=== PATIENT | female | born 1985 | race Caucasian/White ===

== ENCOUNTER → 2017-10-30 12:18 | Outpatient (CLI) | payer OTHER, SELFPAY ==
[2017-10-30 13:21] LABS: Progesterone Level 0.35 ng/mL (See Comment)
[2017-11-04 09:37] LABS: Pregnancy, Serum, hCG Quali. NEGATIVE Negative (0-9 Nonpreg)
== END ==
PROVIDERS: Visit Provider Obstetrics & Gynecology
DX: Z30.430 Encounter for insertion of intrauterine contraceptive device (principal)
CPT/HCPCS: 36415; 84144; 84703

== ENCOUNTER → 2017-11-04 16:29 | Outpatient (CLI) | payer OTHER, SELFPAY ==
[2017-11-04 19:51] LABS: Chlamydia Trachomatis by PCR Negative (Negative); Neisserai gonorrhoeae by PCR Negative (Negative); Probe Check PASS; Sample Adequacy Control PASS; Specimen Processing Control PASS
== END ==
PROVIDERS: Visit Provider Obstetrics & Gynecology
DX: Z11.3 Encounter for screening for infections with a predominantly sexual mode of transmission (principal)
CPT/HCPCS: 87491; 87591

== ENCOUNTER → 2019-04-20 14:38 | Outpatient (CLI) | payer OTHER, SELFPAY ==
[2019-04-20 11:17] VITALS: BMI 19.1
[2019-04-20 14:51] LABS: Color, Urine Yellow (Yellow); Glucose, Dipstick Normal (Normal); Ketone-Dipstick Negative (Negative); Leukocyte Esterase-Dipstick 25 /ul (Negative); Nitrite-Dipstick Negative (Negative); Occult Blood-Urine 10 /ul (Negative); Protein-Dipstick 30 mg/dl (Negative); Specific Gravity, Urine 1.015 (1.002-1.030); Urine Bilirubin Dipstick Negative (Negative); Urine Clarity Sl. Cloudy (Clear); Urine Urobilinogen Normal (Normal)
[2019-04-20 14:57] LABS: Bacteria 1+ /hpf (None Seen); Mucous, Urine 1+ /hpf (<or=2+); Red Blood Cells-Urine 0-5 SEEN /hpf (0-5); Squamous Epithelial Cells - UA 0-5 SEEN /hpf (5-10); White Blood Cells 0-5 SEEN /hpf (0-5)
== END ==
PROVIDERS: Family Provider Family Medicine; PCP Family Medicine; Referring Provider Physician Assistant Surgical; Visit Provider Physician Assistant Surgical
DX: R30.0 Dysuria (principal)
CPT/HCPCS: 81001; 87086; 87088

== ENCOUNTER → 2022-12-26 | Outpatient (CLI) | payer OTHER, SELFPAY ==
[2023-01-03 10:08] LABS: HPV APTIMA, High Risk Negative (Negative)
== END | disposition home or self-care (01) ==
PROVIDERS: PCP Family Medicine; Visit Provider Nurse Practitioner Women's Health
DX: Z12.4 Encounter for screening for malignant neoplasm of cervix (principal)
CPT/HCPCS: 87624; 88175; G0145

== ENCOUNTER 2025-02-13 09:48 | Emergency (ER) | payer OTHER, SELFPAY ==
[2025-02-13 09:48] VITALS: BP 106/62; PULSE 59; RESP 14; TEMP 36.9; O2SAT 100; BMI 19.7
[2025-02-13] MEDS: Ketorolac 30 MG/ML Syringe IM (10:24)
--- NOTE | 2025-02-13 10:30 | RAD_ITS ---
PROCEDURE: ELBOW MIN 3 VIEWS 02/13/2025 REASON FOR EXAM: ELBOW PAIN TECHNIQUE: 3 views of the right COMPARISON: None FINDINGS: Small osseous fragments lateral to the lateral condyle. No acute fracture or dislocation. No joint effusion. No significant soft tissue swelling. RAD/Elbow min 3 Views IMPRESSION: No acute fracture or dislocation. 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 Reading Location: [facility]
--- OUTSIDE RECORDS SUMMARY | 2025-02-13 10:41 | XMS RPT_ITS | CCD ---
Author Organization [facility] Care Team Providers Care Reactor Operator Name Role Phone Azam Cordova MD Primary Care Provider CIARAN DAVIS Attending Unavailable AZAM CORDOVA Primary Care Unavailable CIARAN DAVIS Admitting Unavailable CIARAN DAVIS Attending Unavailable AZAM CORDOVA Primary Care Unavailable CIARAN DAVIS Admitting Unavailable AZAM CORDOVA Primary Care Unavailable SINDHU GAGE Attending Unavailable CIARAN DAVIS Referring Unavailable CIARAN DAVIS Attending Unavailable AZAM CORDOVA Primary Care Unavailable AZAM CORDOVA Referring Unavailable AZAM CORDOVA Referring Unavailable AZAM CORDOVA Primary Care Unavailable CIARAN DAVIS Referring Unavailable AZAM CORDOVA Primary Care Unavailable AZAM CORDOVA Primary Care Unavailable AZAM CORDOVA Attending Unavailable AZAM CORDOVA Primary Care Unavailable CIARAN DAVIS Attending Unavailable Azam Cordova MD Primary Care Provider [phone] Azam Cordova Primary Care Unavailable Isabelle Bazzi Attending Unavailable Azam Cordova Primary Care Unavailable Isabelle Bazzi Referring Unavailable Isabelle Bazzi Attending Unavailable Azam Cordova MD Primary Care Provider Allergies Allergy Classification Reported Allergen(s) Allergy Type Date of Onset Reaction(s) Facility Bacitracin (2 sources) Bacitracin Drug Allergy 07-09-2015 [facility] Bacitracin / Neomycin / Polymyxin B (2 sources) Bacitracin / Neomycin / Polymyxin B Drug Allergy 07-09-2015 [facility] (12 sources) Bacitracin; Translations: [BACITRACIN] Drug Allergy 07-09-2015 [facility] (11 sources) Bacitracin / Neomycin / Polymyxin B; Translations: [NEOSPORIN (NEOMYCIN-POLYMY X)] Drug Allergy 07-09-2015 [facility] (2 sources) Bacitracin; Translations: [bacitracin zinc] Drug Allergy 04-20-2019 Other [facility] (2 sources) Neomycin; Translations: [neomycin sulfate] Drug Allergy 04-20-2019 Other [facility] (1 source) Penicillins Allergy to substance 04-20-2019 [facility] (1 source) Polymyxin B Drug Allergy 04-20-2019 Other [facility] (1 source) Bacitracin Drug Allergy 04-20-2019 [facility] (1 source) Penicillins Drug allergy (disorder) 04-20-2019 [facility] (1 source) polymyxin B Drug allergy (disorder) 04-20-2019 [facility] Medications Current Medications Medication Drug Class(es) Dates Sig (Normalized) Sig (Original) busPIRone hydrochloride 10 mg oral tablet (2 sources) Start: 02-17-2024 End: 08-15-2024 take 1 tablet by mouth three times daily busPIRone (BUSPAR) 10 mg tablet Indications: Anxiety with depression Take 1 tablet by mouth three times a day. 270 tablet 1 02/17/2024 08/15/2024 Active Start: 11-01-2023 End: 01-30-2024 take 1 tablet by mouth three times daily busPIRone (BUSPAR) 5 mg tablet Indications: Anxiety with depression Take 1 tablet by mouth three times a day. 90 tablet 2 11/01/2023 01/30/2024 Active Comment on above: Take 1 tablet by theo three times a day. [place] (Nk) (1 source) Start: [place] (Nk) Active April 20, 2019 12:00am PARoxetine hydrochloride 20 mg oral tablet (5 sources) Serotonin Reuptake Inhibitor Start: End: take 1 tablet by mouth once daily PARoxetine (PAXIL) 20 mg tablet Indications: Anxiety with depression Take 1 tablet by mouth once daily. 90 tablet 1 02/17/2024 08/15/2024 Active Start: 02-17-2024 End: 02-17-2024 take 1 tablet by mouth once daily PARoxetine (PAXIL) 10 mg tablet Indications: Anxiety with depression Take 1 tablet by mouth once daily. 30 tablet 2 02/17/2024 02/17/2024 Discontinued Start: 11-01-2023 End: 01-30-2024 take 1 tablet by mouth once daily PARoxetine (PAXIL) 10 mg tablet Indications: Anxiety with depression Take 1 tablet by mouth once daily. 30 tablet 2 11/01/2023 Active Comment on above: Take 1 tablet by theo th once daily. Completed/Discontinued Medications Medication Drug Class(es) Dates Sig (Normalized) Sig (Original) ciprofloxacin 3 mg/ml / dexamethasone 1 mg/ml otic suspension (1 source) Corticosteroid, Quinolone Antimicrobial Start: 03-17-2018 End: 03-24-2018 Ciprofloxacin-Dexa methasone (Ciprodex) 0.3-0.1 % drops,suspension Discontinued 4 DRP OTIC Q12H 7.5 7 March 17, 2018 12:00am March 24, 2018 12:06am docusate sodium 100 mg oral capsule (1 source) Start: 09-18-2017 End: 03-17-2018 take 100 mg by mouth twice daily as needed Docusate Sodium Discontinued 100 MG PO TWICE DAILY NEEDED September 18, 2017 1:00am March 17, 2018 8:04am ondansetron 4 mg oral tablet (1 source) Serotonin-3 Receptor Antagonist Start: 08-13-2017 End: 03-17-2018 take 4 mg by mouth every six hours as needed Ondansetron Hcl Discontinued 4 MG PO EVERY 6 HOURS NEEDED August 13, 2017 1:31pm March 17, 2018 8:04am oxyCODONE hydrochloride 5 mg oral tablet (1 source) Opioid Agonist Start: 09-18-2017 End: 03-17-2018 take 5-10 mg by mouth every six hours as needed for pain Oxycodone Discontinued 5 - 10 MG PO EVERY 6 HOURS NEEDED September 18, 2017 1:00am March 17, 2018 8:04am 5-10 mg q 6 hours prn severe pain Vit,[id number]-Bsh ic (1 source) Start: 03-07-2017 End: 03-17-2018 take 1 tablet by mouth once daily Vit,[id number]-Pn lic Discontinued 1 TABLET PO DAILY March 07, 2017 12:00am March 17, 2018 8:04am Problems Active Problems Problem Classification Problem Date Documented Date Episodic/Chronic Abdominal pain (1 source) Abdominal pain; Translations: [Unspecified abdominal pain] 09-18-2017 Episodic Adjustment disorders (11 sources) Adjustment disorder; Translations: [Adjustment disorder, unspecified] Onset: 04-07-2014 04-07-2014 Chronic Anxiety disorders (15 sources) Panic; Translations: [Panic disorder [episodic paroxysmal anxiety]] Onset: 04-07-2014 04-07-2014 Chronic Conduction disorders (11 sources) Bundle branch block; Translations: [Nonspecific intraventricular block] Onset: 03-20-2021 03-20-2021 Chronic Nonmalignant breast conditions (1 source) Unspecified lump in the right breast, unspecified quadrant; Translations: [Unspecified lump in the right breast, unspecified quadrant] Onset: 12-31-2022 Episodic Other ear and sense organ disorders (11 sources) Chronic infective otitis externa; Translations: [Other infective otitis externa, unspecified ear] Onset: 06-28-2022 06-28-2022 Chronic Other nervous system disorders (11 sources) Carpal tunnel syndrome of left wrist; Translations: [Carpal tunnel syndrome, left upper limb] Onset: 08-08-2022 Chronic Other nervous system disorders (1 source) Carpal tunnel syndrome of right wrist; Translations: [Carpal tunnel syndrome, right upper limb] Chronic Other nervous system disorders (1 source) Carpal tunnel syndrome, right upper limb; Translations: [Carpal tunnel syndrome of right wrist] Onset: 08-31-2022 Chronic Other nervous system disorders (2 sources) Carpal tunnel syndrome, left upper limb; Translations: [Carpal tunnel syndrome of left wrist] Onset: 08-08-2022 Chronic Other nervous system disorders (1 source) Bilateral carpal tunnel syndrome; Translations: [Carpal tunnel syndrome, bilateral upper limbs] Chronic Other nervous system disorders (1 source) Paresthesia; Translations: [Paresthesia of skin] Episodic Other nervous system disorders (1 source) Paresthesia of skin; Translations: [Paresthesia] Onset: 07-16-2022 Episodic Other screening for suspected conditions (not mental disorders or infectious disease) (1 source) Encounter for screening for malignant neoplasm of cervix; Translations: [Encounter for screening for malignant neoplasm of cervix] Onset: 01-01-2023 Episodic Residual codes; unclassified (1 source) Difficulty sleeping ; Translations: [Sleep disorder, unspecified] 11-01-2023 Episodic Substance-related disorders (8 sources) Smokes tobacco daily; Translations: [Nicotine dependence, unspecified, uncomplicated] Onset: 08-08-2022 Chronic Past or Other Problems Problem Classification Problem Date Documented Da te Episodic/Chronic Cardiac dysrhythmias (12 sources) Palpitations; Translations: [Palpitations] Onset: 03-20-2021 03-20-2021 Episodic Hemorrhoids (11 sources) Hemorrhoids; Translations: [Unspecified hemorrhoids] Onset: 10-29-2012 10-29-2012 Episodic Results Test Name Value Interpretation Reference Range Facil ity PAP IG HPV APTIMA 16/18,45on 01-03-2023 ADEQ Comment Normal . [facility] Comment on above: Order Comment: Speci men Comment: [id number] Specimen Comment: Source.............Cervix;Endocervix Specimen Comment: Dates / Results....NO LMP Specimen Comment: No. of containers..01 ThinPrep Vial Result Comment: Sati sfactory for evaluation. Endocervical and/or squamous metaplastic cells (endocervical component) are present. Performed By: #### L 7400.0280 #### [facility] [address] [place], [address] COMM . Normal . [facility] Comment on above: Order Comment: Speci men Comment: [id number] Specimen Comment: Source.............Cervix;Endocervix Specimen Comment: Dates / Results....NO LMP Specimen Comment: No. of containers..01 ThinPrep Vial Performed By: #### L 7400.0280 #### [facility] [address] [place], [place], [id number] COMMENT Comment Normal . [facility] Comment on above: Order Comment: Speci men Comment: [id number] Specimen Comment: Source.............Cervix;Endocervix Specimen Comment: Dates / Results....NO LMP Specimen Comment: No. of containers..01 ThinPrep Vial Result Comment: This liquid based ThinPrep(R) pap test was screened with the use of an image guided system. Performed By: #### L 7400.0280 #### [facility] [address] [place], [place], [id number] DIAG Comment Normal . [facility] Comment on above: Order Comment: Speci men Comment: [id number] Specimen Comment: Source.............Cervix;Endocervix Specimen Comment: Dates / Results....NO LMP Specimen Comment: No. of containers..01 ThinPrep Vial Result Comment: NEGA TIVE FOR INTRAEPITHELIAL LESION OR MALIGNANCY. Performed By: #### L 7400.0280 #### [facility] [address] [place], [place], [address] HPV APTIMA, HR Negative Normal Negative [facility] Comment on above: Order Comment: Speci men Comment: [id number] Specimen Comment: Source.............Cervix;Endocervix Specimen Comment: Dates / Results....NO LMP Specimen Comment: No. of containers..01 ThinPrep Vial Result Comment: This nucleic acid amplification test detects fourteen high- risk HPV types (16,18,31,33,35,39,45,51,52,56,58,59,66,68) without differentiation. Performed By: #### L 7400.0280 #### [facility] [address] [place], [place], [address] HPV Mandy Rfx Comment Normal . [facility] Comment on above: Order Comment: Speci men Comment: [id number] Specimen Comment: Source.............Cervix;Endocervix Specimen Comment: Dates / Results....NO LMP Specimen Comment: No. of containers..01 ThinPrep Vial Result Comment: Crit eria not met, HPV Genotype not performed. Performed at: [address] [place] [id number] Bone Glue Maker: Nasrin Claudio MD, Phone: [phone] Performed at: =G - [facility] [id number] Bone Glue Maker: Nasrin Claudio MD, Phone: [phone] Performed By: #### L [id number] #### [facility] [address] [place], [place], [address] PAPSMR Comment Normal . [facility] Comment on above: Order Comment: Speci men Comment: [id number] Specimen Comment: Source.............Cervix;Endocervix Specimen Comment: Dates / Results....NO LMP Specimen Comment: No. of containers..01 ThinPrep Vial Result Comment: The Pap smear is a screening test designed to aid in the detection of premalignant and malignant conditions of the uterine cervix. It is not a diagnostic procedure and should not be used as the sole means of detecting cervical cancer. Both false-positive and false-negative reports do occur. Performed By: #### L 7400.0280 #### [facility] [address] [place], [place], [address] PERFORM Comment Normal . [facility] Comment on above: Order Comment: Speci men Comment: [id number] Specimen Comment: Source.............Cervix;Endocervix Specimen Comment: Dates / Results....NO LMP Specimen Comment: No. of containers..01 ThinPrep Vial Result Comment: Juani Reyes, Truck Safety Inspector (ASCP) Performed By: #### L [id number] #### [facility] [address] [place], [place], [address] ANES POSTPROC EVALon 022 ANES POSTPROC EVAL HNO ID: [id number] Author: Tiburcio Perez MD Service: Anesthesiology Author Type: Anesthesiologist Type: Anesthesia Postprocedure Evaluation Filed: 08/31/2022 10:54 AM Note Text: POST ANESTHESIA EVALUATION NOTE : 1985 Procedure Summary Date: 08/31/22 Room / Location: ME OR01 / ME OR Anesthesia Start: 1012 Anesthesia Stop: 1037 Procedure: DECOMPRESSION NERVE MEDIAN CARPAL TUNNEL (Right: Hand) Diagnosis: Right carpal tunnel syndrome (Right carpal tunnel syndrome [G56.01]) Surgeons: Ciaran Davis MD Responsible Provider: Tiburcio Perez MD Anesthesia Type: MAC ASA Status: 2 Anesthesia Type: MAC Last Vitals Vitals Value Taken Time BP 89/53 08/31/22 1046 Temp 354 08/31/22 1053 Pulse 57 08/31/22 1052 Resp 16 08/31/22 1052 SpO2 98 % 08/31/22 1052 Vitals shown include unvalidated device data. Post Anesthesia Patient Status Patient Evaluation: PACU. PACU/ICU Patient Condition: stable. Anticipated Disposition: phase 2 then home. Neurological Status: aware and responsive. Pulmonary Status: breathing comfortably on room air Airway Control: returned to baseline unsupported. Cardiovascular Status: stable. Pain Management: clinically adequate - multimodal analgesia pain management approach Postoperative Hydration: acceptable. Intraoperative Events: no significant anesthesia events Recommendation: continue current plan of care. Anesthesia Observations No Documentation SIGNATURE: Tiburcio Perez MD PATIENT NAME: Leila Marin DATE: August 31, 2022 TIME: 10:53 AM CSN: [id number] [facility] ANES PRE-OPon 08-31-2022 ANES PRE-OP HNO ID: [id number] Author: Tiburcio Perez MD Service: Anesthesiology Author Type: Anesthesiologist Type: Anesthesia Preprocedure Evaluation Filed: 08/31/2022 8:38 AM Note Text: ANESTHESIOLOGY DAY OF SURGERY NOTE : 1985 Procedure Information Date/Time: 08/31/22 1005 Procedure: DECOMPRESSION NERVE MEDIAN CARPAL TUNNEL (Right: Wrist) Location: NM OR01 / NM OR Surgeons: Ciaran Davis MD Estimated body mass index is 19.53 kg/m? as calculated from the following: Height as of 08/10/22: 180.3 cm (5' 11). Weight as of 08/10/22: 63.5 kg (140 lb). Most recent hematocrit and potassium results: Hematocrit 39.2 10/05/2020 Potassium 4.1 10/05/2020 Relevant Problems CARDIO (+) Bundle branch block (+) Hemorrhoids I - PHYSICAL EVALUATION AIRWAY Patient intubated: No. Tracheostomy tube not present Mallampati: II. TM distance: >3 FB. Neck ROM: full ROM without neurological symptoms. Mouth opening: adequate. Collins present: no DENTAL Dental findings: poor dentition. Additional exam findings: yes. CARDIOVASCULAR Rhythm: regular PULMONARY Breath sounds clear to auscultation. II - ANESTHESIA PLAN ASA Score: 2 Anesthetic Plan: MAC NPO Status: adequate Beta Octavia Monitoring Plan Monitoring plan: standard ASA. Post Procedure Analgesic Plan Postoperative analgesic plan: parenteral or oral opioids and multimodal analgesia. Patient / Surrogate agrees to blood products: blood products not planned Significant changes in the patient condition since the History and Physical, not otherwise documented in primary service progress note: no. Vitals Value Taken Time BP 114/67 08/31/2237 Pulse 77 08/31/22836 Resp 18 08/31/22836 Temp 36.4 ?C (97.5 ?F) 08/31/22836 SpO2 100 % 08/31/22836 No current facility-administered medications on file as of 08/31/2022. No current outpatient medications on file as of 08/31/2022. I have interviewed and examined the patient. I have reviewed the medical record and/or the pre-anesthesia evaluation, pertinent labs, and test results. This contains updated information obtained within 48 hours of Surgery/Procedure. SIGNATURE: Tiburcio Perez MD PATIENT NAME: Leila Marin DATE: August 31, 2022 TIME: 8:38 AM CSN: [id number] [facility] OPERATIVE NOon 08-31-2022 OPERATIVE NO HNO ID: [id number] Author: Ciaran Davis MD Service: Orthopaedic Surgery Author Type: Physician Type: Operative Report Filed: 08/31/2022 10:44 AM Note Text: OPERATIVE/PROCEDURE REPORT LOG ID: [id number] SURGERY/PROCEDURE DATE: 08/31/2022 INCISION/PROCEDURE START TIME: 10:23 AM INCISION CLOSE/PROCEDURE END TIME: 10:33 AM SURGEON(S)/PROCEDURALIS T(S) AND DRAW FRAME TENDER(S): Surgeon(s) and Role: * Ciaran Davis MD - Primary Physician Tower Technician: Sindhu Gage PA-C OPERATION: Right carpal tunnel release, open. Modifier 79 ANESTHESIA: MAC with local. PREOPERATIVE DIAGNOSIS: Right carpal tunnel syndrome. POSTOPERATIVE DIAGNOSIS: Right carpal tunnel syndrome. OPERATIVE INDICATIONS: This is a pleasant 37 year old female who had worsening, numbness, and tingling. Her electrodiagnostic showed normal findings on the right, however she had positive findings on the left, successful improvement after surgery on the left, and similar symptoms on the right. She exhausted conservative management and in the office, we discussed the risks, benefits, alternatives, and potential complications involving carpal tunnel release and she wished to pursue surgical intervention. OPERATIVE FINDINGS: Consistent with postoperative diagnosis. OPERATIVE PROCEDURE: On August 31, 2022, the patient was clearly identified in the preoperative area and marked accordingly on the Right palm by myself. She was taken to the operative suite and placed in the supine position with an armboard on the Right. She received 2 g of Ancef in the IV within 1 hour of incision or tourniquet. Anesthesia assumed care of the head and neck for the remainder of the case and began a MAC anesthetic. All other bony landmarks were appropriately padded in standard fashion. The upper extremity had a well-padded upper brachium tourniquet applied with Webril padding and set at 250 mmHg, but not yet inflated. The arm was then sterilely prepped and draped in standard fashion. An appropriate time-out was conducted and all in the room were in agreement, signed consent form was on the chart. The upper extremity was exsanguinated with an Esmarch bandage and the tourniquet was applied at 250 mmHg. Local anesthetic was provided at the palm and wrist with 1% lidocaine plain and 0.25% Marcaine plain in a 1:1 ratio for total of 4 mL. A longitudinal incision was made with in line with the third web space from 1 cm distal of the wrist crease to Velasquez's cardinal line. I used Delmy Rakes to retract the soft tissues. Bipolar electrocautery was used for hemostasis. I bluntly dissected down with Littler scissors to distal edge of the transverse carpal ligament until a flash of fat was noted. I directly divided distal edge of the transverse carpal ligament with a #15 blade. Attention was then focused on the proximal portion and I used Littler scissors to bluntly dissect off the volar surface of the transverse carpal ligament. A carpal tunnel and median nerve protection guide was slid directly under the ligament for dilation and a second time for appropriate positioning, this was passed freely without any resistance. Subsequently, I selected a mini meniscotome Champl[place] blade and slid this in the protective guide, completely dividing the transverse carpal ligament. Delmy rakes were used to view up the wound to visualize for complete release and a Loami elevator was used to palpate for complete release. At this point, the tourniquet was taken down and hemostasis was observed. The wound was copiously irrigated with normal saline and I closed with 3-0 nylons in horizontal mattress fashion for a total of 3. Xeroform gauze, sterile 4 x 4 gauze, Webril padding, and a Bias roll was used for final bandage. There were no complications during the procedure. The patient was safely awoken and transferred to the Postanesthetic Care Unit in stable condition. I performed the surgery myself SIGNATURE: Ciaran Davis MD PATIENT NAME: Leila Ricci Eusebio DATE: August 31, 2022 TIME: 10:41 AM [facility] 08-20-2022 [facility] Office Visit (ORTHWS ) EUSEBIOLEILA L ([id number]) 1985 F Date Time Provider Department 08/20/22 7:30 AM SINDHU GAGE During your visit today, we recorded the following information about you: Minnie Tk Wetzel 08/20/2022 8:02 AM Signed Patient presents with: Left Hand - Post Op 1 week 3 days post op Left CTR AMB ROOMING INTAKE FLOWSHEET DATA Risk Screening Do you have concerns about personal safety or safety in the home?: No Patient denies any pain. States she does have some tightness from the sutures pulling. Sutures intact. No redness or drainage. Sindhu Gage PA-C 08/20/2022 8:02 AM Signed Sindhu Gage PA-C Department [facility]edics [facility] [address] [facility] [address] Dept: [phone] Dept August 20, 2022 CHIEF COMPLAINT: Post Op of the Left Hand and 1 week 3 days post op Left CTR. ASSESSMENT: G56.02 Carpal tunnel syndrome, left (primary encounter diagnosis) SUMMARY/PLAN: Patient presents 1 week and 3 days status post left carpal tunnel release. She is doing very well denies any pain. Is already been doing quite a bit of baking, reports some tightness at the surgical site. Is already wanting to schedule her right carpal tunnel release. We discussed proper hand washing, no soaking of the operative hand. No heavy lifting, pushing or pulling with the operative hand, encourage gentle motion. We discussed scar massage. Follow up as planned. Exam: Incision site is well approximated without erythema or drainage. There is mild but appropriate edema and some resolving ecchymosis along the palm and the volar aspect of the wrist. Patient has full and active range of motion in the left wrist and hand. Sensation is intact in the radial 3 digits. Imaging: Deferred today. Ms. Leila Marin was advised as to contrast therapies and/or to take analgesics/anti-inflamm atories as needed and all contraindications were reviewed. Supporting Information Below: Medications: No current outpatient medications on file. No current facility-administered medications for this visit. Allergies: Bacitracin and Neosporin (Neomycin-Polymyx) This note was partially generated using [employer] voice recognition system, and there may be some incorrect words, spellings, and punctuation that were not noted in checking the note before saving. Sindhu Gage PA-C Referring Provider: CIARAN DAVIS [[id number]] Allergies As of Date: 08/20/2022 Noted Allergy Reaction BACITRACIN 07/09/2015 7 - Swelling NEOSPORIN (NEOMYCIN-POLYMYX) 07/09/2015 7 - Swelling Date Reviewed: 08/20/2022 Reviewed by: Sindhu Gage PA-C - Fully Assessed Reason for Visit: Post Op [174] 1 week 3 days post op Left CTR [Other] Primary Visit Diagnosis:Carpal tunnel syndrome, left [G56.02] Meds Comments as of 01/04/2014: No daily medications Problem List As Of Date 08/20/2022 Noted Resolved Hemorrhoids [K64.9] 10/29/2012 Panic [F41.0] 04/07/2014 Adjustment disorder [F43.20] 04/07/2014 Palpitations [R00.2] 03/20/2021 Bundle branch block [I45.4] 03/20/2021 Chronic infective otitis externa [H60.399] 06/28/2022 Carpal tunnel syndrome, left [G56.02] 08/08/2022 Current every day smoker [F17.200] 08/08/2022 Encounter Status:Closed by SINDHU GAGE on 08/20/22 [facility] [place] 08-20-2022 CNPN Telephone (JOSEPH) LEILA MARIN ([id number]) 1985 F Date Time Provider Department 08/20/22 CIARAN DAVIS During your visit today, we recorded the following information about you: Minnie Frey Ma 08/20/2022 10:32 AM Signed Patient scheduled for Right CTR on 08/31/2022. Surgical request completed. Post op appointments scheduled and mailed to patient. Chelsi Dickson Ma 08/22/2022 3:20 PM Signed Surgery has been scheduled as requested. Allergies As of Date: 08/20/2022 Noted Allergy Reaction BACITRACIN 07/09/2015 7 - Swelling NEOSPORIN (NEOMYCIN-POLYMYX) 07/09/2015 7 - Swelling Date Reviewed: 08/20/2022 Reviewed by: Sindhu Gage PA-C - Fully Assessed Reason for Visit: Schedule Surgery [1330] Primary Visit Diagnosis:Right carpal tunnel syndrome [G56.01] Order(s):SURGICAL REQUEST - ELECTIVE (04/2020) [[id number]] Order #: [id number]: 1 Meds Comments as of 01/04/2014: No daily medications Problem List As Of Date 08/20/2022 Noted Resolved Hemorrhoids [K64.9] 10/29/2012 Panic [F41.0] 04/07/2014 Adjustment disorder [F43.20] 04/07/2014 Palpitations [R00.2] 03/20/2021 Bundle branch block [I45.4] 03/20/2021 Chronic infective otitis externa [H60.399] 06/28/2022 Carpal tunnel syndrome, left [G56.02] 08/08/2022 Current every day smoker [F17.200] 08/08/2022 Letter Text Encounter Status:Closed by CHELSI DICKSON MA on 08/22/22 Normal [facility] ANES POSTPROC EVALon 022 ANES POSTPROC EVAL HNO ID: [id number] Author: Dex Roberts MD Service: ? Author Type: Anesthesiologist Type: Anesthesia Postprocedure Evaluation Filed: 08/10/2022 2:53 PM Note Text: POST ANESTHESIA EVALUATION NOTE : 1985 Procedure Summary Date: 08/10/22 Room / Location: NM OR / NM OR Anesthesia Start: 1313 Anesthesia Stop: 1335 Procedure: DECOMPRESSION NERVE MEDIAN CARPAL TUNNEL (Left: Wrist) Diagnosis: Carpal tunnel syndrome, left (Carpal tunnel syndrome, left [G56.02]) Surgeons: Ciaran Davis MD Responsible Provider: Dex Roberts MD Anesthesia Type: MAC ASA Status: 2 Anesthesia Type: MAC Last Vitals Vitals Value Taken Time BP 99/54 08/10/22 1400 Temp 36.5 ?C (97.7 ?F) 08/10/22 1340 HR SpO2 70 08/10/22 1340 Resp 23 08/10/22 1413 SpO2 98 % 08/10/22 1413 Vitals shown include unvalidated device data. Post Anesthesia Patient Status Patient Evaluation: bedside. Anticipated Disposition: phase 2 then home. Neurological Status: aware and responsive. Pulmonary Status: breathing comfortably on room air Airway Control: returned to baseline unsupported. Cardiovascular Status: stable. Pain Management: clinically adequate Postoperative Hydration: acceptable. Intraoperative Events: no significant anesthesia events Post Operative Nausea/Vomiting Status: no significant post operative nausea or vomiting Recommendation: continue current plan of care. Anesthesia Observations No Documentation SIGNATURE: Dex Roberts MD PATIENT NAME: Leila Marin DATE: August 10, 2022 TIME: 2:50 PM CSN: [id number] [facility] ANES PRE-OPon 08-10-2022 ANES PRE-OP HNO ID: [id number] Author: Dex Roberts MD Service: ? Author Type: Anesthesiologist Type: Anesthesia Preprocedure Evaluation Filed: 08/10/2022 10:58 AM Note Text: ANESTHESIOLOGY DAY OF SURGERY NOTE : 1985 Procedure Information Date/Time: 08/10/22 1125 Procedure: DECOMPRESSION NERVE MEDIAN CARPAL TUNNEL (Left: Wrist) Location: NM OR01 / NM OR Surgeons: Ciaran Davis MD Estimated body mass index is 19.53 kg/m? as calculated from the following: Height as of this encounter: 180.3 cm (5' 11). Weight as of this encounter: 63.5 kg (140 lb). Most recent hematocrit and potassium results: Hematocrit 39.2 10/05/2020 Potassium 4.1 10/05/2020 Relevant Problems ANESTHESIA (-) Sleep apnea CARDIO (+) Bundle branch block (+) Hemorrhoids (-) Angina at rest (HCC) (-) Angina of effort (HCC) PULMONARY (-) Asthma (-) Sleep apnea I - PHYSICAL EVALUATION AIRWAY Patient intubated: No. Tracheostomy tube not present Mallampati: II. TM distance: >3 FB. Neck ROM: full ROM without neurological symptoms. Mouth opening: adequate. Short neck: no. Thick neck: no Collins present: no DENTAL Dental findings: teeth intact. Additional exam findings: yes. CARDIOVASCULAR Rhythm: regular Rate: normal PULMONARY Breath sounds clear to auscultation. II - ANESTHESIA PLAN ASA Score: 2 Anesthetic Plan: MAC The patient is a current smoker. NPO Status: adequate Beta Octavia Monitoring Plan Monitoring plan: standard ASA. Post Procedure Analgesic Plan Postoperative analgesic plan: multimodal analgesia. Informed Consent Anesthetic risks, benefits, alternatives, personnel and consent discussed: yes. Patient / Responsible Libertarian agrees to proceed: yes Patient / Surrogate agrees to blood products: Yes DNR status not reviewed with patient and/or family prior to surgery. Significant changes in the patient condition since the History and Physical, not otherwise documented in primary service progress note: no. Potential Anesthesia issues that may suggest increased risk of complications or contraindication to planned procedure: none. Vitals Value Taken Time BP 107/68 08/10/22 1018 Pulse 67 08/10/22 1018 Resp 18 08/10/22 1018 Temp 36.8 ?C (98.2 ?F) 08/10/22 1018 SpO2 100 % 08/10/22 1018 Facility-Administered Medications as of 08/10/2022 Medication Dose Route Frequency - lactated ringers iv infusion 5-30 mL/hr INTRAVENOUS CONTINUOUS - ceFAZolin iv piggyback 2 g in D5W (iso-osmotic) 100 mL (ANCEF) 2 g INTRAVENOUS Pre-Op Once No current outpatient medications on file as of 08/10/2022. I have interviewed and examined the patient. I have reviewed the medical record and/or the pre-anesthesia evaluation, pertinent labs, and test results. This contains updated information obtained within 48 hours of Surgery/Procedure. SIGNATURE: Dex Roberts MD PATIENT NAME: Leila Marin DATE: August 10, 2022 TIME: 10:57 AM CSN: [id number] [facility] OPERATIVE NOon 08-10-2022 OPERATIVE NO HNO ID: [id number] Author: Ciaran Davis MD Service: Orthopaedic Surgery Author Type: Physician Type: Operative Report Filed: 08/10/2022 3:33 PM Note Text: OPERATIVE/PROCEDURE REPORT LOG ID: [id number] SURGERY/PROCEDURE DATE: 08/10/2022 INCISION/PROCEDURE START TIME: 1:24 PM INCISION CLOSE/PROCEDURE END TIME: 1:36 PM SURGEON(S)/PROCEDURALIS T(S) AND DRAW FRAME TENDER(S): Surgeon(s) and Role: * Ciaran Davis MD - Primary Physician Tower Technician: Sindhu Gage PA-C SURGERY/PROCEDURE(S): [place] [id number] [place] OPERATIVE REPORT NAME:Leila Marin [id number] DATE: August 10, 2022 AGE: [age] year old SURGEON 1: Ciaran Davis M.D. OPERATION: Left carpal tunnel release, open. ANESTHESIA: MAC with local. PREOPERATIVE DIAGNOSIS: Left carpal tunnel syndrome. POSTOPERATIVE DIAGNOSIS: Left carpal tunnel syndrome. OPERATIVE INDICATIONS: This is a pleasant 37 year old female who had worsening, numbness, and tingling. Her electrodiagnostic showed Mild carpal tunnel syndrome. She exhausted conservative management and in the office, we discussed the risks, benefits, alternatives, and potential complications involving carpal tunnel release and she wished to pursue surgical intervention. OPERATIVE FINDINGS: Consistent with postoperative diagnosis. OPERATIVE PROCEDURE: On August 10, 2022, the patient was clearly identified in the preoperative area and marked accordingly on the Left palm by myself. She was taken to the operative suite and placed in the supine position with an armboard on the Left. She received 2 g of Ancef in the IV within 1 hour of incision or tourniquet. Anesthesia assumed care of the head and neck for the remainder of the case and began a MAC anesthetic. All other bony landmarks were appropriately padded in standard fashion. The upper extremity had a well-padded upper brachium tourniquet applied with Webril padding and set at 250 mmHg, but not yet inflated. The arm was then sterilely prepped and draped in standard fashion. An appropriate time-out was conducted and all in the room were in agreement, signed consent form was on the chart. The upper extremity was exsanguinated with an Esmarch bandage and the tourniquet was applied at 250 mmHg. Local anesthetic was provided at the palm and wrist with 1% lidocaine plain and 0.25% Marcaine plain in a 1:1 ratio for total of 4 mL. A longitudinal incision was made with in line with the third web space from 1 cm distal of the wrist crease to Velasquez's cardinal line. I used Delmy Rakes to retract the soft tissues. Bipolar electrocautery was used for hemostasis. I bluntly dissected down with Littler scissors to distal edge of the transverse carpal ligament until a flash of fat was noted. I directly divided distal edge of the transverse carpal ligament with a #15 blade. Attention was then focused on the proximal portion and I used Littler scissors to bluntly dissect off the volar surface of the transverse carpal ligament. A carpal tunnel and median nerve protection guide was slid directly under the ligament for dilation and a second time for appropriate positioning, this was passed freely without any resistance. Subsequently, I selected a mini meniscotome Champlin blade and slid this in the protective guide, completely dividing the transverse carpal ligament. Delmy rakes were used to view up the wound to visualize for complete release and a Loami elevator was used to palpate for complete release. At this point, the tourniquet was taken down and hemostasis was observed. The wound was copiously irrigated with normal saline and I closed with 3-0 nylons in horizontal mattress fashion for a total of 3. Xeroform gauze, sterile 4 x 4 gauze, Webril padding, and a Bias roll was used for final bandage. There were no complications during the procedure. The patient was safely awoken and transferred to the Postanesthetic Care Unit in stable condition. Incision/Procedure Start Time: 1:24 PM Incision Close/Procedure End Time: 1:36 PM ESTIMATED BLOOD LOSS: None. DRAINS: None SPECIMENS: None. Ciaran Davis M.D. PARTICIPATION IN SURGERY/PROCEDURE: I/primary surgeon/proceduralist performed the entire procedure. SIGNATURE: Ciaran Davis MD PATIENT NAME: Leila Ricci Eusebio DATE: August 10, 2022 TIME: 3:32 PM [facility] 08-08-2022 [facility] Telephone (VIOLA) EUSEBIOLEILA Keiry ([id number]) 1985 F Date Time Provider Department 08/08/22 LUISA GUAJARDO During your visit today, we recorded the following information about you: Allergies As of Date: 08/08/2022 Noted Allergy Reaction BACITRACIN 07/09/2015 7 - Swelling NEOSPORIN (NEOMYCIN-POLYMYX) 07/09/2015 7 - Swelling Date Reviewed: 08/08/2022 Reviewed by: Luisa Guajardo APRN.WOOD BUCKER - Fully Assessed Reason for Visit: Appointment [186] Cmt: DOS 08/10/2022 Meds Comments as of 01/04/2014: No daily medications Problem List As Of Date 08/08/2022 Noted Resolved Hemorrhoids [K64.9] 10/29/2012 Panic [F41.0] 04/07/2014 Adjustment disorder [F43.20] 04/07/2014 Palpitations [R00.2] 03/20/2021 Bundle branch block [I45.4] 03/20/2021 Chronic infective otitis externa [H60.399] 06/28/2022 Carpal tunnel syndrome, left [G56.02] 08/08/2022 Current every day smoker [F17.200] 08/08/2022 Encounter Status:Closed by LUISA GUAJARDO on 08/08/22 Normal [facility] HISTORY PHYSICALon HISTORY PHYSICAL HNO ID: [id number] Author: Luisa Guajardo APRN.WOOD BUCKER Service: ? Author Type: Nurse Practitioner Type: HANDP Filed: 08/08/2022 1:18 PM Note Text: PREANESTHESIA CONSULT CLINIC TELEHEALTH VISIT Patient has been identified by name and date of : Yes This is a virtual visit using Gurubook[employer] video visit. It require patient-provider interaction for the medical decision making as documented below. Reason for contact: PACC visit Accompanied by: Self Scheduled Surgery: DECOMPRESSION NERVE MEDIAN CARPAL TUNNEL Subjective CHIEF COMPLAINT: Carpal tunnel syndrome, left HPI: This is a 37 year old female who presents with carpal tunnel syndrome, left. Patient says that she wakes up with cramps and difficulty moving her hand, numbness and pins and needles sensation and no feeling in hand at all. Patient has been splinting for the past 10 years. ACTIVE PROBLEM LIST Hemorrhoids Panic Adjustment Disorder Palpitations Bundle Branch Block Chronic Infective Otitis Externa Carpal Tunnel Syndrome, Left PAST MEDICAL HISTORY Diagnosis Date Depression NEGATIVE MEDICAL HISTORY Tricuspid valve regurgitation 08/08 echo,minimal, no murmur PAST SURGICAL HISTORY Procedure Laterality Date MIRENA PAST SURGICAL HISTORY OF c section x 1 FAMILY HISTORY Problem Relation Age of Onset None Other other (anxiety [Other]) Mother None Father Social History Tobacco Use Smoking status: Every Day Packs/day: 0.30 Years: 5.00 Pack years: 1.50 Types: Cigarettes Smokeless tobacco: Never Tobacco comments: was on chantix in the past. Substance Use Topics Alcohol use: Yes Comment: very raraely Drug use: No ALLERGIES Allergen Reactions Bacitracin Swelling Neosporin (Neomycin* Swelling MEDICATIONS: No current outpatient medications on file. No current facility-administered medications for this visit. COVID VACCINATION STATUS: Fully vaccinated REVIEW OF SYSTEMS: General: No unintentional weight loss, malaise or fevers. No recent illnesses. 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 No neurological symptoms or problems. Respiratory: +current everyday smoker. No history of current cough or dyspnea, or pneumonia in the past 6 weeks. Cardiovascular: +hx of palpitations, negative workup in 2020, no palpitations since then. No history of HTN requiring medication, no history of angina, CHF, IA, cardiac surgery or stents. Denies rest pain, gangrene or revascularization/amput ation for PVD. GI: No history of GI symptoms or problems. No history of esophageal varices, recent ascites, or ETOH greater than 2 drinks per day. 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 Negative for abnormal vaginal bleeding, abnormal vaginal discharge. : Denies, Patient's last menstrual period was 04/30/2011. Endocrine: No history of diabetes. No thyroid issues. Has not taken steroids within the past 30 days. No history of endocrinological symptoms or problems. Hematology: No history of bleeding or clotting disorder. Pt is not taking anti-coagulation or platelet medications. No history of hematological symptoms or problems. Oncology: No history of CA metastasis, chemo within 30 days, or radiotherapy within 90 days. Has not lost 10% of body wt in 6 months. No history of oncological symptoms or problems. Psych: No history of psychiatric symptoms or problems. Musculoskeletal: + hx-see HPI. Skin: Negative for lesions, rash and itching. Objective PHYSICAL EXAM: Ht 5' 11 (1.80m) Wt 140 lb (63.5kg) LMP 04/30/2011 BMI 19.53 kg/(m2). VIDEO EXAM: (if completed, performed via video enabled technology) GENERAL: alert and appropriate, in no distress, well-hydrated, well nourished, and happy, smiling, interactive SKIN: no rash noted HEAD: normocephalic, no abnormality or lesion noted RESPIRATORY: breathing non-labored CHEST: equal chest rise with normal respiratory effort HEART: regular rate EXTREMITIES: no swelling NEUROLOGIC: no obvious deficit Diagnostic tests reviewed for today's visit: Lab Value Units Date High Low HB No results within date range. HCT No results within date range. WBC No results within date range. PLT No results within date range. NA No results within date range. K No results within date range. GLUC No results within date range. BUN No results within date range. CREAT No results within date range. PTSEC No results within date range. INR No results within date range. APTT No results within date range. ALT No results within date range. AST No results within date range. TBILI No results within date range. TSH No results within date range. Lab Value Units Date High Low HCGQT No results within date range. UHCG No results within date range. HCG, BODY* No results within d (more content not included)... Normal [facility] 08-07-2022 [facility] Telephone (ELVIRA) LEILA MARIN ([id number]) 1985 F Date Time Provider Department 08/07/22 CIARAN DAVIS During your visit today, we recorded the following information about you: Chelsi Dickson Ma 08/07/2022 11:32 AM Signed Surgical request completed for left CTR at [facility] on 08/10/2022. Chelsi Dickson Ma 08/07/2022 4:32 PM Signed Post op appointments have been scheduled and mailed to patient. Surgery has been scheduled as requested. Allergies As of Date: 08/07/2022 Noted Allergy Reaction BACITRACIN 07/09/2015 7 - Swelling NEOSPORIN (NEOMYCIN-POLYMYX) 07/09/2015 7 - Swelling Date Reviewed: 08/06/2022 Reviewed by: Ciaran Davis MD - Fully Assessed Reason for Visit: Schedule Surgery [1330] Primary Visit Diagnosis:Carpal tunnel syndrome, left [G56.02] Order(s):SURGICAL REQUEST - ELECTIVE (04/2020) [[id number]] Order #: [id number]: 1 Meds Comments as of 01/04/2014: No daily medications Problem List As Of Date 08/07/2022 Noted Resolved Hemorrhoids [K64.9] 10/29/2012 Panic [F41.0] 04/07/2014 Adjustment disorder [F43.20] 04/07/2014 Palpitations [R00.2] 03/20/2021 Bundle branch block [I45.4] 03/20/2021 Chronic infective otitis externa [H60.399] 06/28/2022 Encounter Status:Closed by CHELSI DICKSON MA on 08/07/22 [facility] CNOVon 08-06-2022 CNOV Office Visit (ORTHWS ) LEILA MARIN ([id number]) 1985 F Date Time Provider Department 08/06/22 8:30 AM CIARAN DAVIS During your visit today, we recorded the following information about you: Ciaran Davis MD 08/06/2022 12:40 PM Signed Patient presents with: Left Wrist - New, Pain Ciaran Davis MD Department of Orthopaedics Orthopaedics [facility] [address] [facility] [address] Dept: [phone] Dept August 06, 2022 CHIEF COMPLAINT: New and Pain of the Left Wrist HPI Pt with carpal tunnel pain in left wrist for 4 years. Pt states splints help ease pain. Pt is right hand dominant. AMB ROOMING INTAKE FLOWSHEET DATA Risk Screening Do you have concerns about personal safety or safety in the home?: No Pain Pain Level: 3 Pain Location: Wrist-Left Description: Tingling Duration Amount of Time: 4 Duration Units: Years Frequency: Continuous Intervention/Comfort measure: Splinting ASSESSMENT: G56.02 Carpal tunnel syndrome, left PLAN: We reviewed the risks, benefits, alternatives and potential complications involving both operative and nonoperative care. This is been going on for quite some time and her symptoms likely out way her mild nerve test findings. We will proceed with MAC CTR. Stagger with the right by a few weeks. Gel brace for early return to work. FOLLOW UP INSTRUCTIONS: As above Ms. Leila Marin was advised as to contrast therapies and/or to take analgesics/anti-inflamm atories as needed and all contraindications were reviewed. OBJECTIVE: Ms. Leila Marin is a pleasant 37 year old in no apparent distress. Gen:LMP 04/30/2011 nl development, non obese, no deformities ENT: Normocephalic, normal hearing, moist mucosa CV: Pulses:Radial= 2+ and symmetric, capillary refill < 2 secs, no peripheral edema/varicosities Skin: no rash, bruising or lesions. Good turgor. Psych: cooperative and appropriate, alert and oriented x 3, good mood and affect. Musculoskeletal: Cervical spine has supple range of motion and no tenderness to palpation, Spurling's sign negative. Shoulders and elbows have full range of motion. Negative Tinel's over the cubital tunnel, no subluxation of ulnar nerve at the elbow with flexion. Negative Tinel's over Guyon's canal. Inspection reveals no thenar atrophy. Diminished sensation to light touch in the radial 3 digits, left greater than right. Sensation intact in the ulnar 2 digits with out intrinsic atrophy/weakness. Positive Tinel's at the wrist, positive carpal tunnel compression testing on the left greater than right. No locking or catching of the digits. No tenderness to palpation or masses noted in the forearm or hand. IMAGING: Study Interpretation Electrodiagnostic examination of the left upper extremity with comparison studies of the right median nerve demonstrates: Findings in the left median nerve that are borderline for borderline/mild left median neuropathy at the wrist (carpal tunnel syndrome). Comparison studies of the right median nerve are normal. There is no significant evidence of other compression neuropathy nor cervical radiculopathy in the left upper extremity. Supporting Subjective Information Below: Past Medical History: PAST MEDICAL HISTORY Diagnosis Date Depression NEGATIVE MEDICAL HISTORY Tricuspid valve regurgitation 08/08 echo,minimal, no murmur Past Surgical History: PAST SURGICAL HISTORY Procedure Laterality Date MIRENA PAST SURGICAL HISTORY OF c section x 1 Family History: FAMILY HISTORY Problem Relation Age of Onset None Other other (anxiety [Other]) Mother None Father Social History: Social History Tobacco Use Smoking status: Every Day Packs/day: 0.30 Years: 5.00 Pack years: 1.50 Types: Cigarettes Smokeless tobacco: Never Tobacco comments: was on chantix in the past. Substance Use Topics Alcohol use: No Drug use: No Medications: No current outpatient medications on file. No current facility-administered medications for this visit. Allergies: Bacitracin and Neosporin (Neomycin-Polymyx) ROS: General (negative for fatigue, malaise, weight loss/gain) HEENT (negative for headache, earache, recent vision changes, sinus pain, sore throat) Respiratory (no recent shortness of breath, hemoptysis) CV (negative for chest tightness, palpitations) Musculoskeletal (see HPI) Psych (no depression, anxiety) REFERRING PHYSICIAN: Consultation requested by Dr. Cordova for an opinion regarding bilateral carpal tunnel. My final recommendations will be communicated back to the requesting physician by way of shared Medical record or letter to requesting physician via US mail. Azam Cordova [address] [facility] [address] Azam Cordova MD [address] [facility] [id number] MD Chelsi Linda (more content not included)... Normal [facility] LEILA MARIN ([id number]) 1985 F Date Time Provider Department 07/16/22 AZAM CORDOVA During your visit today, we recorded the following information about you: Azam Cordova MD 07/16/2022 10:37 AM Signed Emg shows borderline carpal tunnel. Can have her see ortho to evaluate further. Tabitha Ho 07/16/2022 1:03 PM Signed Patient informed and verbalized understanding. Sent to schedulers. Tabitha Ho Allergies As of Date: 07/16/2022 Noted Allergy Reaction BACITRACIN 07/09/2015 7 - Swelling NEOSPORIN (NEOMYCIN-POLYMYX) 07/09/2015 7 - Swelling Date Reviewed: 06/28/2022 Reviewed by: Tabitha Ho - Fully Assessed Reason for Visit: Results [95] Primary Visit Diagnosis:Carpal tunnel syndrome, left [G56.02] Order(s):CONSULT TO ORTHOPAEDICS [9014] Order #: [id number]: 1 FUTURE Meds Comments as of 01/04/2014: No daily medications Problem List As Of Date 07/16/2022 Noted Resolved Hemorrhoids [K64.9] 10/29/2012 Panic [F41.0] 04/07/2014 Adjustment disorder [F43.20] 04/07/2014 Palpitations [R00.2] 03/20/2021 Bundle branch block [I45.4] 03/20/2021 Chronic infective otitis externa [H60.399] 06/28/2022 Encounter Status:Closed by AZAM CORDOVA on 07/25/22 Normal [facility] EMG(NEURO/NI)on 07-16-2022 [facility] CNOVon 06-28-2022 CNOV Office Visit (FAMPWS ) LEILA MARIN ([id number]) 1985 F Date Time Provider Department 06/28/22 1:20 PM AZAM CORDOVA FAMPWS During your visit today, we recorded the following information about you: Pulse Blood pressure Weight Height 65/minute 100/68 63.5 kg 1.778 m Azam Cordova MD 06/28/2022 1:39 PM Signed Patient presents with: Wrist Pain HPI: Patient presents today for office visit for concerns with B/L wrist pain that started about 4+ YRS ago. Progressing. 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 Getting cramps from wrists up to elbow. Hands and fingers curl and lock up. Wears splints at night with no relief. Wakes her up at night. Locking up during the day. Have to wait for them to relax and open. Can be swollen at times. Splint prevents swelling. Gets numb, primarily in her thumb and forefinger. Starts in the ball of her hand and travels up her wrist to her elbow. Can feel electric shocks. No trauma. Neck feels ok. Worse with driving. MEDICATIONS: No current outpatient medications on file. No current facility-administered medications for this visit. ALLERGIES: ALLERGIES Allergen Reactions Bacitracin Swelling Neosporin (Neomycin* Swelling PAST MEDICAL HISTORY Diagnosis Date Depression NEGATIVE MEDICAL HISTORY Tricuspid valve regurgitation 08/08 echo,minimal, no murmur PAST SURGICAL HISTORY Procedure Laterality Date MIRENA PAST SURGICAL HISTORY OF c section x 1 FAMILY HISTORY Problem Relation Age of Onset None Other other (anxiety [Other]) Mother None Father Social History Tobacco Use Smoking status: Every Day Packs/day: 0.30 Years: 5.00 Pack years: 1.50 Types: Cigarettes Smokeless tobacco: Never Tobacco comments: was on chantix in the past. Substance Use Topics Alcohol use: No Drug use: No Reviewed current medications, allergies, past medical history, surgical history, family history and social history today. REVIEW OF SYSTEMS All other reviewed and negative other than HPI. VITALS: BP 100/68 Pulse 65 Ht 177.8 cm (5' 10) Wt 63.5 kg (140 lb) LMP 04/30/2011 SpO2 99% BMI 20.09 kg/m? Last 4 Encounter Wt Readings: Date: Wt: 03/20/2021 64 kg (141 lb) 10/05/2020 59.9 kg (132 lb) 09/30/2018 57.6 kg (127 lb) 01/15/2018 62.6 kg (138 lb) PHYSICAL EXAMINATION: General appearance: Well appearing, alert, in no acute distress, well-hydrated, well nourished. Skin: Skin color, texture, turgor normal, no suspicious rashes or lesions Extremities: No deformities, edema, skin discoloration, clubbing or cyanosis. Good capillary refill. , positive phalen's. Atrophy. Musculoskeletal: No joint swelling, deformity, or tenderness Peripheral pulses: Normal Neuro: Gait normal. Reflexes normal and symmetric. Sensation grossly intact. ASSESSMENT/PLAN: 1. Paresthesia - ICD9: 782.0, ICD10: R20.2 - stretches, ice, b complex vitamins. Discussed risks and benefits of new medication with the patient. Advised them to call if any side effects or questions. - continue splinting. Send to ortho pending the above. - EMG(NEURO/NI) - MELOXICAM 15 MG TABLET Azam Cordova MD Medical Decision Making: Problems: Moderate: New problem with uncertain prognosis Data: Unique test(s) ordered: 1 Risk: Moderate: Drug management Medical Decision Making Level: 4 - Moderate Allergies As of Date: 06/28/2022 Noted Allergy Reaction BACITRACIN 07/09/2015 7 - Swelling NEOSPORIN (NEOMYCIN-POLYMYX) 07/09/2015 7 - Swelling Date Reviewed: 06/28/2022 Reviewed by: Tabitha Ho - Fully Assessed Reason for Visit: Wrist Pain [1580] Primary Visit Diagnosis:Paresthesia [R20.2] Order(s):EMG(NEURO/NI) [[id number]] Order #: [id number]: 1 FUTURE meloxicam (MOBIC) 15 mg tabletTake 1 tablet by mouth once daily for 10 days. With food.Disp: 10 tabletRfl: 0 Prescriptions as of 06/28/2022 - meloxicam (MOBIC) 15 mg tablet Take 1 tablet by mouth once daily for 10 days. With food. Meds Comments as of 01/04/2014: No daily medications Problem List As Of Date 06/28/2022 Noted Resolved Hemorrhoids [K64.9] 10/29/2012 Panic [F41.0] 04/07/2014 Adjustment disorder [F43.20] 04/07/2014 Palpitations [R00.2] 03/20/2021 Bundle branch block [I45.4] 03/20/2021 Chronic infective otitis externa [H60.399] 06/28/2022 Prescriptions ordered this encounter Disp Refills Start End MELOXICAM 15 MG TABLET 10 t* 0 06/28/2022 07/08/2022 Route: ORAL Sig: Take 1 tablet by mouth once daily for 10 days. With food. Medications Discontinued During This Encounter Prescriptions - ergocalciferol 50,000 unit capsule (VITAMIN D2, DRISDOL) (Discontinued) Take 1 capsule by mouth one time a week. - metoprolol tartrate, short acting, (LOPRESSOR) 25 mg tablet (Discontinued) Take 0.5 tablets by mouth as needed (twice daily). - ofloxacin (FLOXIN) 0.3 % ot (more content not included)... [facility] (AGCARDPOB ) LEILA MARIN ( ) 1985 F Date Time Provider Department 04/03/21 SHALONDA PAL During your visit today, we recorded the following information about you: Liliana Galicia 04/03/2021 3:09 PM Signed ----- Message from Shalonda Pal APRN.WOOD BUCKER sent at 04/03/2021 2:50 PM EDT ----- Please call patient and notify her of results. Echocardiogram shows grossly normal structure and function EF 65%, no significant valve disease Liliana Galicia 04/03/2021 3:10 PM Signed Voicemail left for patient to return call to [facility] regarding testing results. Phone number provided. LISSETTE Sheldon LPN 04/03/2021 3:17 PM Signed Ms Marin returned our call and was given Shalonda Pal NP's response to echo results. She states verbal understanding. Nuvia Jarquin LPN Allergies As of Date: 04/03/2021 Noted Allergy Reaction BACITRACIN 07/09/2015 7 - Swelling NEOSPORIN (NEOMYCIN-POLYMYX) 07/09/2015 7 - Swelling Date Reviewed: 03/20/2021 Reviewed by: Shalonda Pal APRN.CNP - Fully Assessed Reason for Visit: Results [95] Prescriptions as of 04/03/2021 - metoprolol tartrate, short acting, (LOPRESSOR) 25 mg tablet Take 0.5 tablets by mouth as needed (twice daily). - ergocalciferol 50,000 unit capsule (VITAMIN D2, DRISDOL) Take 1 capsule by mouth one time a week. - traZODone (DESYREL) 50 mg tablet Take 1 tablet by mouth daily at bedtime. - ondansetron (ZOFRAN) 4 mg tablet Take 1 tablet by mouth every 8 hours as needed for Nausea/Vomiting. - ofloxacin (FLOXIN) 0.3 % otic solution Use 5 Drops in the right ear once daily. - vit,george 74/iron/folic ( VITAMIN 1+1 ORAL) Take 1 tablet by mouth once daily. Facility-Administered Medications as of 04/03/2021 - perflutren lipid microspheres 1.3 mL in NaCl (PF) 0.9% 10 mL injection (DEFINITY) - sodium chloride 0.9 % (flush) 10 mL (BD POSIFLUSH) Meds Comments as of 01/04/2014: No daily medications Problem List As Of Date 04/03/2021 Noted Resolved Hemorrhoids [K64.9] 10/29/2012 Panic [F41.0] 04/07/2014 Adjustment disorder [F43.20] 04/07/2014 Palpitations [R00.2] 03/20/2021 Bundle branch block [I45.4] 03/20/2021 Encounter Status:Closed by NUVIA JARQUIN on 04/03/21 [facility] Vital Signs Date Time Vital Sign Value Performing Clinician Irasema ashley 08-08-2022 12:55-0500 Body height 180.3 cm Pacc V irtual Work Phone: [facility] 08-08-2022 12:55-0500 Body weight 63.5 kg Pacc V irtual Work Phone: [facility] Encounters Encounter Date Encounter Type Care Provider Facility Start: 02-17-2024 End: 02-17-2024 ambulatory Nicole Sam APRN.CNP Work Phone: [facility] [place] Comment on above: Anxiety with depress ion (Primary Dx) Start: 02-17-2024 End: 02-17-2024 Telemedicine consultation with patient Nicole Sam APRN.CNP Work Phone: [facility] Start: 02-15-2024 Refill Nicole Flaco JOSE.WOOD BUCKER Work Phone: [facility] Comment on above: Refill Request Start: 02-11-2024 Refill Nicole Laiboubacar JOSE.WOOD BUCKER Work Phone: [facility] Comment on above: Refill Request Start: 11-01-2023 End: 11-01-2023 ambulatory Nicole Laiboubacar [employer].WO[employer]CKER Work Phone: [facility] Comment on above: Anxiety with depress ion (Primary Dx); Difficulty sleeping Start: 11-01-2023 End: 11-01-2023 Telemedicine consultation with patient Nicole aSm REBECA.WOOD BUCKER Work Phone: [facility] Start: 01-15-2023 ambulatory [facility] Facility:[facility] Start: 12-26-2022 End: 12-26-2022 Patient encounter procedure [facility] [employer] [facility] Start: 12-26-2022 End: 12-26-2022 ambulatory [facility] Work Phone: Start: 09-13-2022 End: 09-13-2022 ambulatory [facility] Facility:[facility] Start: 09-13-2022 End: 09-13-2022 Patient encounter procedure Ciaran Davis MD Work Phone: Orthopaedics Comment on above: Bilateral carpal abram greta syndrome (Primary Dx) Start: 08-31-2022 End: 08-31-2022 ambulatory CIARAN DAVIS Facility:[facility] Start: 08-20-2022 End: 08-20-2022 ambulatory [facility] Facility:[facility] Start: 08-10-2022 End: 08-10-2022 ambulatory CIARAN DAVIS Facility:[facility] Start: 08-08-2022 Encounter for other preprocedural examination [facility] Start: 08-08-2022 End: 08-08-2022 Evaluation and management of inpatient CIARAN DAVIS Facility:[facility] Start: 08-08-2022 Telephone encounter Luisa Guajardo APRN.WOOD BUCKER Work Phone: Pre Anesthesia Comment on above: Appointment (DOS 08/10/2022 ) Start: 08-08-2022 End: 08-08-2022 Admission to establishment [facility] Work Phone: [facility] Start: 08-08-2022 End: 08-08-2022 ambulatory [facility] Work Phone: Pre Anesthesia Comment on above: Preoperative examina tion (Primary Dx); Carpal tunnel syndrome, left; Palpitations; Current every day smoker Start: 08-08-2022 End: 08-08-2022 Preprocedural examination done [facility] Work Phone: Pre Anesthesia Start: 08-07-2022 Telephone encounter Ciaran gustafson MD Work Phone: Orthopaedics Comment on above: Schedule Surgery Start: 08-06-2022 End: 08-06-2022 ambulatory CIARAN DAVIS Facility:[facility] Start: 08-06-2022 End: 08-06-2022 Patient encounter procedure Ciaran Davis MD Work Phone: Orthopaedics Comment on above: Carpal tunnel syndro me of right wrist (Primary Dx); Carpal tunnel syndrome, left Start: 07-16-2022 Telephone encounter Azam Cordova MD Work Phone: [facility] Comment on above: Results Start: 07-16-2022 End: 07-16-2022 ambulatory AZAM CORDOVA Facility:[facility] Start: 07-16-2022 End: 07-16-2022 ambulatory Emg 850) Neurology Start: 07-16-2022 End: 07-16-2022 Patient encounter procedure [facility] 2 Neur Pavel (Max Weight: 850) [facility] Start: 06-28-2022 End: 06-28-2022 ambulatory AZAM CORDOVA Facility:[facility] Procedures Date Procedure Procedure Detail Performing Clinician Start: 07-16-2022 Nerve conduction zelalem dies 5-6 studies Azam Cordova MD Work Phone: Plan of Treatment Date Care Activity Detail Author Start: 12-27-2027 Screening for malignant neoplasm of cervix [facility] Start: 12-26-2025 Screening for malignant neoplasm of cervix Cervical Cancer Screening [facility] Start: 05-10-2024 Influenza vaccination Influenza Vaccine (Season Ended) [facility] Start: 09-09-2023 Depression Assessment Depression Assessment [facility] Start: 05-10-2023 Covid-19 Vaccine ( season) Covid-19 Vaccine ( season) [facility] Start: 05-10-2023 Influenza vaccination Influenza Vaccine (#1) [facility] Start: 09-09-2022 DEPRESSION ASSESSMENT DEPRESSION ASSESSMENT [facility] Start: 05-10-2022 Influenza vaccination INFLUENZA (#1) [facility] Start: 09-09-2021 DEPRESSION ASSESSMENT DEPRESSION ASSESSMENT [facility] Start: 06-27-2021 PAP TESTING PAP TESTING [facility] Start: 2016 HPV TESTING HPV TESTING [facility] Start: 2005 Hepatitis B Vaccine (1 of 3 - 19+ 3-dose series) Hepatitis B Vaccine (1 of 3 - 19+ 3-dose series) [facility] Start: 2005 Urine microalbumin profile [facility] Start: 2004 HEPATITIS C SCREENING HEPATITIS C SCREENING [facility] Start: 2004 Hepatitis C screening Hepatitis C Screening [facility] Start: 2004 HIV SCREENING HIV SCREENING [facility] Start: 2004 HIV screening HIV Screening [facility] Start: 1992 PNEUMOCOCCAL (1 - PCV) PNEUMOCOCCAL (1 - PCV) [facility] Start: 1992 Pneumococcal vaccination Pneumococcal Vaccine (1 of 2 - PCV) [facility] Start: 1986 COVID-19 VACCINE (#1) COVID-19 VACCINE (#1) [facility] Start: 1986 HEPATITIS B (1 of 3 - 3-dose series) HEPATITIS B (1 of 3 - 3-dose series) [facility] Start: 1986 Hepatitis B Vaccine (1 of 3 - 3-dose series) Hepatitis B Vaccine (1 of 3 - 3-dose series) [facility] Path report.final Dx Spec [facility] Immunizations Immunization Date Immunization Notes Care Provider Fa cility 09-19-2017 influenza, seasonal, injectable [facility] 09-19-2017 influenza, seasonal, injectable, preservative free Emg 850) [facility] 09-19-2017 influenza virus vaccine, unspecified formulation Nicole Sam APRN.CNP Work Phone: [facility] Payers Date Payer Category Payer Private Health Insurance [id number] 2022 Self-pay [id number] 2022 Private Health Insurance JASWINDERLUPE [place] MARIMAR PPO TPA [id number] 2022-Present [address] [place] [id number] PPO [id number] 2020 Unknown [id number] 2019 Unknown [id number] 2015 Unknown [id number] Unknown [id number] Unknown [id number] Social History Date Type Detail Facility Start: [facility]28[facility] History of tobacco use Cigarette Smoker [facility] Start: 06-28-2022 End: 11-01-2023 Cigarettes smoked current (pack per day) - Reported 0.3 [facility] Start: 06-28-2022 Tobacco use and exposure Smokeless tobacco non-user [facility] Start: 06-28-2022 End: 08-06-2022 Alcohol intake Current non-drinker of alcohol (finding) [facility] Start: 06-28-2022 History SDOH Alcohol Frequency 2 [facility] Start: 06-28-2022 History SDOH Alcohol Std Drinks 1 [facility] Start: 06-28-2022 History SDOH Social Connections Phone 5 [facility] Start: 06-28-2022 History SDOH Social Connections Living 8 [facility] Start: 06-28-2022 History SDOH Physica l Activity DPW 3 [facility] Start: 06-28-2022 History SDOH Physica l Activity MPS 4 [facility] Start: 10-05-2020 Education 15 [facility] Start: 06-28-2022 Tobacco Comment was on chantix in the past. [facility] Start: 1985 Sex Assigned At Not on file [facility] Start: 06-18-2022 End: 08-06-2022 Exposure to SARS-CoV-2 (event) Not sure [facility] Start: 08-08-2022 End: 11-01-2023 Alcohol intake Current drinker of alcohol (finding) [facility] Start: 08-08-2022 Alcohol Comment [facility] Start: 04-20-2019 Tobacco smoking stat us [facility]IS Unknown if ever smoked [facility] Start: 02-06-2015 Spouse/ Signif icant Other [facility] Start: 1985 Sex Assigned At Female [facility] Start: 11-01-2023 End: 02-17-2024 [facility] Utilities [facility] Has the [facility], [employer], [employer], or water [employer] threatened to shut off services in your home in past 12Mo No [facility] How often do you att end baptism or taoism services? Patient refused [facility] Are you now , , , , never or living with a partner? [facility] How often to you hav e a drink containing alcohol? Monthly or less [facility] How many standard drinks containing alcohol do you have on a typical day? 1 or 2 [facility] How often do you hav e 6 or more drinks on 1 occasion? Never [facility] How hard is it for y ou to pay for the very basics like food, housing, medical care, and heating Not very hard [facility] Do you feel stress - tense, restless, nervous, or anxious, or unable to sleep at night because your mind is troubled all the time - these days [OSQ] Very much [facility] (I/We) worried audrey er (my/our) food would run out before (I/we) got money to buy more. Never true [facility] Start: 10-31-2023 Gender identity Identifies as female gender (finding) [facility] Start: 10-31-2023 Sexual orientation Heterosexual (britney seo) [facility] Clinical Notes 06-28-2022 to 02-17-2024 Patient InstructionsNicole Sam APRN.CNP - 02/17/2024 1:20 PM EDTTelephone Encounter - Manuel Quinn LPN - 02/17/2024 9:38 AM EDTTelephone Encounter - Manuel Quinn LPN - 02/17/2024 9:38 AM EDT Note Date & Type Note Facility 02-17-2024 Instructions Nicole Sam APRN.CNP - 02/17/2024 1:38 PM EDT Increase Paxil to 20 mg daily. Increase BuSpar 10 mg 3 times daily. Recommend establishing care with counselor. Due for wellness exam sometime this year Follow-up in 1 month or sooner as needed. documented in this encounter [facility] 02-17-2024 History of Presen t illness Narrative Chief Complaint Patient presents with: Medication Follow-up This Team Access Model encounter involved medical decision making outside of a scheduled office visit. Patient was offered a virtual/telemedicine appointment in lieu of an office visit due to recommendations to reduce patient exposure to COVID-19. Video was used for evaluation of this patient. Patient agrees to the visit: Yes Patient Location: [facility] Leila Marin is a 38 year old female who is contacted today for a virtual visit This is an established patient of Dr. Azam Cordova MD Reports: Here in the office for medication follow-up. Was seen back in October, started on Paxil 10 mg daily and BuSpar 5 mg 3 times daily. Medication has been helpful but will still having panic with certain environments. Still getting daily panic attacks, usually occurring at the end of her day when she is trying to settle down. Not currently following with a counselor. Sleep has improved. Denies any increased sadness or SI.Hi. Past medical history, appointments, medications, allergies reviewed 02/17/2024 Previous Medical History PAST MEDICAL HISTORY Diagnosis Date Depression NEGATIVE MEDICAL HISTORY Tricuspid valve regurgitation 08/08 echo,minimal, no murmur Previous Surgical History PAST SURGICAL HISTORY Procedure Laterality Date MIRENA PAST SURGICAL HISTORY OF c section x 1 [facility] N/CARPAL TUNNEL SURG Left 08/10/2022 Left carpal tunnel release [facility] N/CARPAL TUNNEL SURG Right 08/31/2022 Right carpal tunnel release Family History FAMILY HISTORY Problem Relation Age of Onset None Other other (anxiety [Other]) Mother None Father Patient Allergies ALLERGIES Allergen Reactions Bacitracin Swelling Neosporin (Neomycin* Swelling Current Medications Current Outpatient Medications on File Prior to Visit Medication Sig PARoxetine (PAXIL) 10 mg tablet Take 1 tablet by mouth once daily. No current facility-administered medications on file prior to visit. Social History Social History Tobacco Use Smoking status: Every Day Packs/day: 0.30 Years: 5.00 Additional pack years: 0.00 Total pack years: 1.50 Types: Cigarettes Smokeless tobacco: Never Tobacco comments: was on chantix in the past. Substance Use Topics Alcohol use: Yes Comment: very raraely Drug use: No Review of Symptoms GENERAL: No malaise or fatigue. No fevers. HEENT: Negative for headaches No eye discharge or redness No earaches No sore throat Nose POS/NEG for congestion and nasal discharge NECK: Negative for pain or swelling. No lumps RESPIRATORY: No wheezing, SOB, Difficulty breathing. No cough CARDIOVASCULAR: Negative for chest pain GI: No nausea, vomiting, or diarrhea MUSCULOSKELETAL: Negative for bodyaches SKIN: Negative for rash or itching Neuro: No lightheadedness or dizziness Mood: + Anxiety EXAM: LMP 04/30/2011 (Exact Date) Limited exam as visit was completed over the virtual platform. Virtual visit completed using video, limited exam completed. Patient sounds or appears ill: No General Appearance: Well appearing, alert, in no acute distress, well-hydrated, well nourished. Skin: Skin color normal Head: Normocephalic. No facial swelling or redness. EENT: Eyes nonreddened. No discharge. External ears nonreddened and no swelling. Neck: No mass or lesions. No swelling. FROM Patient is not able to speak in complete sentences: N/A Patient has labored breathing: No. Patient is audibly coughing: No Psych: Attitude - cooperative, easily engaged in conversation Affect - Euthymic, normal mood Mental status: Alert. Speech is clear and fluent with good repetition, comprehension Appearance - Normal hygiene and grooming appropriate Coordination: No abnormal or extraneous movements. Gait/Stance: Posture is normal. Behavioral Health Screening PHQ-9 Score: 8 (Mild Depression) Recommendation: medication management Health Maintenance List Pneumococcal Vaccine(1 of 2 - PCV) Never done Hepatitis C Screening Never done HIV Screening Never done DTaP,Tdap,Td Vaccine(1 - Tdap) Never done Hepatitis B Vaccine(1 of 3 - 19+ 3-dose series) Never done Covid-19 Vaccine( - season) Never done Influenza Vaccine(Season Ended) due on 05/10/2024 Cervical Cancer Screening due on 12/26/2025 Behavioral Health Screening Completed HPV Vaccine Aged Out Data reviewed Last 5 Encounter BP Readings: Date: BP: 08/31/2022 95/56 08/20/2022 107/54 08/10/2022 95/53 08/07/2022 99/54 06/28/2022 100/68 BMI Readings from Last 5 Encounters: 08/10/22 : 19.53 kg/m 08/08/22 : 19.53 kg/m 06/28/22 : 20.09 kg/m 03/20/21 : 20.07 kg/m 10/05/20 : 18.79 kg/m Last 5 Encounter Wt Readings: Date: Wt: 08/08/2022 63.5 kg (140 lb) 08/07/2022 63.5 kg (140 lb) 06/28/2022 63.5 kg (140 lb) 03/20/2021 64 kg (141 lb) 10/05/2020 59.9 kg (132 lb) Medication and allergy list reviewed, reconciled and updated 02/17/2024 ASSESSMENT/PLAN: 1. Anxiety with depression - ICD9: 300.4, ICD10: F41.8 - Increase Paxil 20 mg daily and Buspar 10 mg TID. - Recommend establishing care with counselor. - PAROXETINE 20 MG TABLET - BUSPIRONE 10 MG TABLET Follow-up in 1 month or sooner as needed. Discussed treatment plan and patient voices understanding. Patient's questions answered appropriately. Medications and potential side effects were discussed and patient voices understanding. Nicole Sam APRN.CNP Total appointment time on virtual with patient = 21-30 minutes This note was partially generated using [employer] voice recognition system. Note was reviewed for accuracy. There may be minor misspellings or grammar miscues with Dragon voice recognition. documented in this encounter [facility] 02-17-2024 Telephone encounter Note Prescription Refill Information The patient has been identified by name and date of : Yes Caregiver verified no other encounters exist for this prescription request: Yes Caregiver confirmed with patient/requestor that no other refills are due, in the near future, with this provider at this time: Yes The last office visit in the department: 11/01/23 (virtual); 06/28/22 (in person) Does the patient have a future office visit with this provider/department: Yes, 02/17/24 with Keerthi Sam CNP Requested Prescriptions Pending Prescriptions Disp Refills PARoxetine (PAXIL) 10 mg tablet 30 tablet 2 Sig: Take 1 tablet by mouth once daily. Manuel Quinn LPN February 17, 2024 9:38 AM [facility] 02-17-2024 Miscellaneous Notes Prescription Refill Information The patient has been identified by name and date of : Yes Caregiver verified no other encounters exist for this prescription request: Yes Caregiver confirmed with patient/requestor that no other refills are due, in the near future, with this provider at this time: Yes The last office visit in the department: 11/01/23 (virtual); 06/28/22 (in person) Does the patient have a future office visit with this provider/department: Yes, 02/17/24 with Keerthi Sam CNP Requested Prescriptions Pending Prescriptions Disp Refills PARoxetine (PAXIL) 10 mg tablet 30 tablet 2 Sig: Take 1 tablet by mouth once daily. Manuel Quinn LPN February 17, 2024 9:38 AM documented in this encounter [facility] 11-01-2023 Instructions Nicole Sam APRN.BRIONNA - 11/01/2023 1:35 PM EST Start Paxil 10 mg daily Start Buspar 5 mg three times daily Recommend establishing care with a counselor. Follow up in 1 month or sooner as needed. SSRI: We discussed starting medication during today s visit for your anxiety and/or depression. This medication will take 4-6 weeks to start feeling better. The most common side effects of this medication are nausea and dry mouth. If you experience any side effects from this medication (mood changes, insomnia, etc), please contact your healthcare provider for further instructions. Do not stop taking this medication abruptly. documented in this encounter [facility] 11-01-2023 History of Presen t illness Narrative Chief Complaint Patient presents with: Anxiety: depression This Team Access Model encounter involved medical decision making outside of a scheduled office visit. Patient was offered a virtual/telemedicine appointment in lieu of an office visit due to recommendations to reduce patient exposure to COVID-19. Video was used for evaluation of this patient. Patient agrees to the visit: Yes Patient Location: [place] I have communicated my name and active licensure. The patient's identity and physical location were verified at the time of this visit. Either the patient or their legal patient service representative has been informed of the risks and benefits of -- and alternatives to -- treatment through a remote evaluation and consents to proceed with the evaluation remotely. HPI Leila Marin is a 38 year old female who is contacted today for a virtual visit This is an established patient of Dr. Azam Cordova MD Reports: Patient of Dr. Cordova, having increased anxiety and sadness. Refers that she has struggled with depression, anxiety, and panic in the past. Some increased sadness, crying episodes. Increase in anxiety. Having difficulty sleeping and focusing. Falls asleep without difficulty but will wake up several times in the night. Overthinking and mind racing. Refers that it is affecting her daily life. Refers that the Effexor was helpful but stopped because she was feeling well. Having panic attacks 3-5 per week. Not following with counselor. No SI/HI. History of eating disorder. Refers that over 10 years ago was on Cymbalta and Effexor. Ativan for panic. Past medical history, appointments, medications, allergies reviewed 10/31/2023 Previous Medical History PAST MEDICAL HISTORY Diagnosis Date Depression NEGATIVE MEDICAL HISTORY Tricuspid valve regurgitation 08/08 echo,minimal, no murmur Previous Surgical History PAST SURGICAL HISTORY Procedure Laterality Date MIRENA PAST SURGICAL HISTORY OF c section x 1 REVISE MEDIAN N/CARPAL TUNNEL SURG Left 08/10/2022 Left carpal tunnel release REVISE MEDIAN N/CARPAL TUNNEL SURG Right 08/31/2022 Right carpal tunnel release Family History FAMILY HISTORY Problem Relation Age of Onset None Other other (anxiety [Other]) Mother None Father Patient Allergies ALLERGIES Allergen Reactions Bacitracin Swelling Neosporin (Neomycin* Swelling Current Medications No current outpatient medications on file prior to visit. No current facility-administered medications on file prior to visit. Social History Social History Tobacco Use Smoking status: Every Day Packs/day: 0.30 Years: 5.00 Additional pack years: 0.00 Total pack years: 1.50 Types: Cigarettes Smokeless tobacco: Never Tobacco comments: was on chantix in the past. Substance Use Topics Alcohol use: Yes Comment: very raraely Drug use: No Review of Symptoms GENERAL: No malaise or fatigue. No fevers. HEENT: Negative for headaches No eye discharge or redness No earaches No sore throat Nose POS/NEG for congestion and nasal discharge NECK: Negative for pain or swelling. No lumps RESPIRATORY: No wheezing, SOB, Difficulty breathing. No cough CARDIOVASCULAR: Negative for chest pain GI: No nausea, vomiting, or diarrhea MUSCULOSKELETAL: Negative for bodyaches SKIN: Negative for rash or itching Neuro: No lightheadedness or dizziness Mood: + Anxiety/sadness/difficulty sleeping EXAM: LMP 04/30/2011 (Exact Date) Limited exam as visit was completed over the virtual platform. Virtual visit completed using video, limited exam completed. Patient sounds or appears ill: No General Appearance: Well appearing, alert, in no acute distress, well-hydrated, well nourished. Skin: Skin color normal Head: Normocephalic. No facial swelling or redness. EENT: Eyes nonreddened. No discharge. External ears nonreddened and no swelling. Neck: No mass or lesions. No swelling. FROM Patient is not able to speak in complete sentences: N/A Patient has labored breathing: No. Patient is audibly coughing: No Psych: Attitude - cooperative, easily engaged in conversation Affect - Euthymic, normal mood Mental status: Alert. Speech is clear and fluent with good repetition, comprehension Appearance - Normal hygiene and grooming appropriate Coordination: No abnormal or extraneous movements. Gait/Stance: Posture is normal. Health Maintenance List Hepatitis B Vaccine(1 of 3 - 3-dose series) Never done Covid-19 Vaccine(1) Never done Pneumococcal Vaccine(1 of 2 - PCV) Never done Hepatitis C Screening Never done HIV Screening Never done DTaP,Tdap,Td Vaccine(1 - Tdap) Never done Influenza Vaccine(1) due on 05/10/2023 Depression Assessment Never done Pap Testing due on 12/27/2027 HPV Testing due on 12/27/2027 HPV Vaccine Aged Out Data reviewed Last 5 Encounter BP Readings: Date: BP: 08/31/2022 95/56 08/20/2022 107/54 08/10/2022 95/53 08/07/2022 99/54 06/28/2022 100/68 BMI Readings from Last 5 Encounters: 08/10/22 : 19.53 kg/m 08/08/22 : 19.53 kg/m 06/28/22 : 20.09 kg/m 03/20/21 : 20.07 kg/m 10/05/20 : 18.79 kg/m Last 5 Encounter Wt Readings: Date: Wt: 08/08/2022 63.5 kg (140 lb) 08/07/2022 63.5 kg (140 lb) 06/28/2022 63.5 kg (140 lb) 03/20/2021 64 kg (141 lb) 10/05/2020 59.9 kg (132 lb) Medication and allergy list reviewed, reconciled and updated 10/31/2023 ASSESSMENT/PLAN: 1. Anxiety with depression - ICD9: 300.4, ICD10: F41.8 (primary diagnosis) - Start Paxil 10 mg daily - Start Buspar 5 mg TID. - Recommend establishing care with counselor. - Recommend relaxation techniques at home. - Follow-up in 1 month. - PAROXETINE 10 MG TABLET - BUSPIRONE 5 MG TABLET 2. Difficulty sleeping - ICD9: 780.50, ICD10: G47.9 - Difficulty sleeping is more than likely related to increased anxiety. - Discussed adding on hydroxyzine in the future if needed. Follow-up in 1 month or sooner as needed. Discussed treatment plan and patient voices understanding. Patient's questions answered appropriately. Medications and potential side effects were discussed and patient voices understanding. Nicole Sam APRN.CNP Total appointment time on virtual with patient = 21-30 minutes This note was partially generated using [employer] voice recognition system. Note was reviewed for accuracy. There may be minor misspellings or grammar miscues with [employer] voice recognition. documented in this encounter [facility] 09-13-2022 History of Presen t illness Narrative Per Dr. Davis, patient presents for suture removal. The wound is well healed without signs of infection. The incision was cleaned with Chloraprep prior to being removed. The sutures are removed. Patient tolerated well. Patient scheduled for 6 week post op on 10/11/22. Ciaran Davis MD Department of Orthopaedics Orthopaedics [address] [facility] [address] Dept: [phone] Dept September 13, 2022 CHIEF COMPLAINT: Post Op of the Right Hand and 1 week 6 days post op Right CTR. HPI Patient here for 1 week 6 days post op Right CTR and 4 weeks 6 days post op Left CTR. Patient states her hands feel like they are on fire. She has been taking Tylenol for the pain and does help take some of the edge off. Sutures intact. No redness or drainage. ASSESSMENT: G56.03 Bilateral carpal tunnel syndrome (primary encounter diagnosis) SUMMARY/PLAN: She's doing well. Left ahead of course. She can remain with as tolerated on the left and still will be taking it easy on the right. Follow up in one month, or as needed if she is doing well. Exam: Healed incision on the left. Right hand looks excellent. Supporting Information Below: Medications: No current outpatient medications on file. No current facility-administered medications for this visit. Allergies: Bacitracin and Neosporin (Neomycin-Polymyx) Ciaran Davis MD documented in this encounter [facility] 08-20-2022 Note HNO ID: [id number] Author: Sindhu Gage PA-C Service: ? Author Type: Physician Tower Technician Type: Progress Notes Filed: 08/20/2022 8:02 AM Note Text: Sindhu Gage PA-C Department of Orthopaedics Orthopaedics [address] [facility] [address] Dept: [phone] Dept August 20, 2022 CHIEF COMPLAINT: Post Op of the Left Hand and 1 week 3 days post op Left CTR. ASSESSMENT: G56.02 Carpal tunnel syndrome, left (primary encounter diagnosis) SUMMARY/PLAN: Patient presents 1 week and 3 days status post left carpal tunnel release. She is doing very well denies any pain. Is already been doing quite a bit of baking, reports some tightness at the surgical site. Is already wanting to schedule her right carpal tunnel release. We discussed proper hand washing, no soaking of the operative hand. No heavy lifting, pushing or pulling with the operative hand, encourage gentle motion. We discussed scar massage. Follow up as planned. Exam: Incision site is well approximated without erythema or drainage. There is mild but appropriate edema and some resolving ecchymosis along the palm and the volar aspect of the wrist. Patient has full and active range of motion in the left wrist and hand. Sensation is intact in the radial 3 digits. Imaging: Deferred today. Ms. Leila Marin was advised as to contrast therapies and/or to take analgesics/anti-inflammatories as needed and all contraindications were reviewed. Supporting Information Below: Medications: No current outpatient medications on file. No current facility-administered medications for this visit. Allergies: Bacitracin and Neosporin (Neomycin-Polymyx) This note was partially generated using [employer] voice recognition system, and there may be some incorrect words, spellings, and punctuation that were not noted in checking the note before saving. Sindhu Gage PA-C [facility] 08-20-2022 Note HNO ID: [id number] Author: Minnie Frey Ma Service: ? Author Type: ? Type: Progress Notes Filed: 08/20/2022 8:02 AM Note Text: Patient presents with: Left Hand - Post Op 1 week 3 days post op Left CTR AMB ROOMING INTAKE FLOWSHEET DATA Risk Screening Do you have concerns about personal safety or safety in the home?: No Patient denies any pain. States she does have some tightness from the sutures pulling. Sutures intact. No redness or drainage. [facility] 08-08-2022 History and physical note PREANESTHESIA CONSULT CLINIC TELEHEALTH VISIT Patient has been identified by name and date of : Yes This is a virtual visit using [employer] video visit. It require patient-provider interaction for the medical decision making as documented below. Reason for contact: PACC visit Accompanied by: Self Scheduled Surgery: DECOMPRESSION NERVE MEDIAN CARPAL TUNNEL Subjective CHIEF COMPLAINT: Carpal tunnel syndrome, left HPI: This is a 37 year old female who presents with carpal tunnel syndrome, left. Patient says that she wakes up with cramps and difficulty moving her hand, numbness and pins and needles sensation and no feeling in hand at all. Patient has been splinting for the past 10 years. ACTIVE PROBLEM LIST Hemorrhoids Panic Adjustment Disorder Palpitations Bundle Branch Block Chronic Infective Otitis Externa Carpal Tunnel Syndrome, Left PAST MEDICAL HISTORY Diagnosis Date Depression NEGATIVE MEDICAL HISTORY Tricuspid valve regurgitation 08/08 echo,minimal, no murmur PAST SURGICAL HISTORY Procedure Laterality Date MIRENA PAST SURGICAL HISTORY OF c section x 1 FAMILY HISTORY Problem Relation Age of Onset None Other other (anxiety [Other]) Mother None Father Social History Tobacco Use Smoking status: Every Day Packs/day: 0.30 Years: 5.00 Pack years: 1.50 Types: Cigarettes Smokeless tobacco: Never Tobacco comments: was on chantix in the past. Substance Use Topics Alcohol use: Yes Comment: very raraely Drug use: No ALLERGIES Allergen Reactions Bacitracin Swelling Neosporin (Neomycin* Swelling MEDICATIONS: No current outpatient medications on file. No current facility-administered medications for this visit. COVID VACCINATION STATUS: Fully vaccinated REVIEW OF SYSTEMS: General: No unintentional weight loss, malaise or fevers. No recent illnesses. 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 No neurological symptoms or problems. Respiratory: +current everyday smoker. No history of current cough or dyspnea, or pneumonia in the past 6 weeks. Cardiovascular: +hx of palpitations, negative workup in 2020, no palpitations since then. No history of HTN requiring medication, no history of angina, CHF, IA, cardiac surgery or stents. Denies rest pain, gangrene or revascularization/amputation for PVD. GI: No history of GI symptoms or problems. No history of esophageal varices, recent ascites, or ETOH greater than 2 drinks per day. 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 Negative for abnormal vaginal bleeding, abnormal vaginal discharge. : Denies, Patient's last menstrual period was 04/30/2011. Endocrine: No history of diabetes. No thyroid issues. Has not taken steroids within the past 30 days. No history of endocrinological symptoms or problems. Hematology: No history of bleeding or clotting disorder. Pt is not taking anti-coagulation or platelet medications. No history of hematological symptoms or problems. Oncology: No history of CA metastasis, chemo within 30 days, or radiotherapy within 90 days. Has not lost 10% of body wt in 6 months. No history of oncological symptoms or problems. Psych: No history of psychiatric symptoms or problems. Musculoskeletal: + hx-see HPI. Skin: Negative for lesions, rash and itching. Objective PHYSICAL EXAM: Ht 5' 11 (1.80m) Wt 140 lb (63.5kg) LMP 04/30/2011 BMI 19.53 kg/(m^2). VIDEO EXAM: (if completed, performed via video enabled technology) GENERAL: alert and appropriate, in no distress, well-hydrated, well nourished, and happy, smiling, interactive SKIN: no rash noted HEAD: normocephalic, no abnormality or lesion noted RESPIRATORY: breathing non-labored CHEST: equal chest rise with normal respiratory effort HEART: regular rate EXTREMITIES: no swelling NEUROLOGIC: no obvious deficit Diagnostic tests reviewed for today's visit: Lab Value Units Date High Low HB No results within date range. HCT No results within date range. WBC No results within date range. PLT No results within date range. NA No results within date range. K No results within date range. GLUC No results within date range. BUN No results within date range. CREAT No results within date range. PTSEC No results within date range. INR No results within date range. APTT No results within date range. ALT No results within date range. AST No results within date range. TBILI No results within date range. TSH No results within date range. Lab Value Units Date High Low HCGQT No results within date range. UHCG No results within date range. HCG, BODY* No results within date range. Lab Value Units Date High Low ABORHD No results within date range. ABSCREEN No results within date range. No results found for: HBA1C EKG 10/05/2020 NORMAL SINUS RHYTHM NORMAL ECG ECHO 03/30/2021 CONCLUSIONS: - Technically difficult exam due to body habitus. - Exam indication: Palpitations - The left ventricle is normal in size. Left ventricular systolic function is normal. EF = 65 5% (2D biplane) Normal left ventricular diastolic function. - The right ventricle is normal in size. Right ventricular systolic function is normal. - There are no significant valvular abnormalities. - Exam was compared with the prior echocardiographic exam performed on 08/05/2013, no significant change. Impression/Recommendations ASSESSMENT: Carpal tunnel syndrome, left Assessment: surgery scheduled 08/10 Palpitations Assessment: EKG NSR in 2020 and ECHO in 2020 normal. Patient denies any recent palpitations Current every day smoker Assessment: smokes less than 1/2 PPD. METS: Climb a flight of stairs or walk up a hill (5.50 METs) Patient denies any chest pain or undue shortness of breath with the above physical activity. ASA Class: 2 ANESTHESIA FINDINGS: Intubation History: No prior intubation Significant Anesthesia Considerations: Has never had anesthesia Airway Exam: General: Normal appearance Mallampati Score is unable to visualize ULBT: Class I - Lower incisors can bite the upper lip above the cody line Neck: Normal appearance and function, Distance from hyoid to mentum during neck extension is at least 3 finger breaths Mouth: Normal tongue size and Mouth opening greater than 2 finger breaths Dentition: Intact and Caps/crowns - all front teeth and some in back are capped Airway History: No abnormal airway history STOP BANG Score: Criteria: None Score = 0 PLAN: This patient is optimally prepared for surgery. CONSULTS: Patient does not require consults for optimization at this time. The Following Tests/Procedures Have Been Initiated: Labs not indicated per PACC protocol, EKG not indicated per PACC protocol Planned Anesthetic: Per anesthesia choice Instructions Given to Patient: Patient given verbal instructions and voices comprehension and compliance. Copy sent electronically via My Chart, email, or mobile device. I spent more than 0-20 minutes [id number] with the patient and over half the time was devoted to counseling and/or coordination of care. This is a virtual visit. It required patient-provider interaction for the medical decision making as documented above. SIGNATURE: Luisa Guajardo APRN.CNP PATIENT NAME: Leila Marin DATE: 08/08/2022 TIME: 1:14 PM PAGER/CONTACT #: documented in this encounter [facility] 08-07-2022 Note HNO ID: [id number] Author: Chelsi Dickson Ma Service: ? Author Type: ? Type: Progress Notes Filed: 08/07/2022 4:34 PM Note Text: Late Entry: PT ASSESSMENT - CASTING ROOM Leila presents for Application of brace. Applied Gel wrist brace to Left hand Patient has been instructed in Care and proper application of brace. Chelsi Dickson Ma [facility] 08-07-2022 Miscellaneous Notes Post op appointments have been scheduled and mailed to patient. Surgery has been scheduled as requested. Surgical request completed for left CTR at [facility] on 08/10/2022. documented in this encounter [facility] 08-06-2022 Note HNO ID: [id number] Author: Ciaran Davis MD Service: ? Author Type: Physician Type: Progress Notes Filed: 08/06/2022 12:40 PM Note Text: Patient presents with: Left Wrist - New, Pain Ciaran Davis MD Department of Orthopaedics Orthopaedics [address] [place] [address] Dept: [phone] Dept August 06, 2022 CHIEF COMPLAINT: New and Pain of the Left Wrist HPI Pt with carpal tunnel pain in left wrist for 4 years. Pt states splints help ease pain. Pt is right hand dominant. AMB ROOMING INTAKE FLOWSHEET DATA Risk Screening Do you have concerns about personal safety or safety in the home?: No Pain Pain Level: 3 Pain Location: Wrist-Left Description: Tingling Duration Amount of Time: 4 Duration Units: Years Frequency: Continuous Intervention/Comfort measure: Splinting ASSESSMENT: G56.02 Carpal tunnel syndrome, left PLAN: We reviewed the risks, benefits, alternatives and potential complications involving both operative and nonoperative care. This is been going on for quite some time and her symptoms likely out way her mild nerve test findings. We will proceed with MAC CTR. Stagger with the right by a few weeks. Gel brace for early return to work. FOLLOW UP INSTRUCTIONS: As above Ms. Leila Marin was advised as to contrast therapies and/or to take analgesics/anti-inflammatories as needed and all contraindications were reviewed. OBJECTIVE: Ms. Leila Marin is a pleasant 37 year old in no apparent distress. Gen:LMP 04/30/2011 nl development, non obese, no deformities ENT: Normocephalic, normal hearing, moist mucosa CV: Pulses:Radial= 2+ and symmetric, capillary refill < 2 secs, no peripheral edema/varicosities Skin: no rash, bruising or lesions. Good turgor. Psych: cooperative and appropriate, alert and oriented x 3, good mood and affect. Musculoskeletal: Cervical spine has supple range of motion and no tenderness to palpation, Spurling's sign negative. Shoulders and elbows have full range of motion. Negative Tinel's over the cubital tunnel, no subluxation of ulnar nerve at the elbow with flexion. Negative Tinel's over Guyon's canal. Inspection reveals no thenar atrophy. Diminished sensation to light touch in the radial 3 digits, left greater than right. Sensation intact in the ulnar 2 digits with out intrinsic atrophy/weakness. Positive Tinel's at the wrist, positive carpal tunnel compression testing on the left greater than right. No locking or catching of the digits. No tenderness to palpation or masses noted in the forearm or hand. IMAGING: Study Interpretation Electrodiagnostic examination of the left upper extremity with comparison studies of the right median nerve demonstrates: Findings in the left median nerve that are borderline for borderline/mild left median neuropathy at the wrist (carpal tunnel syndrome). Comparison studies of the right median nerve are normal. There is no significant evidence of other compression neuropathy nor cervical radiculopathy in the left upper extremity. Supporting Subjective Information Below: Past Medical History: PAST MEDICAL HISTORY Diagnosis Date Depression NEGATIVE MEDICAL HISTORY Tricuspid valve regurgitation 08/08 echo,minimal, no murmur Past Surgical History: PAST SURGICAL HISTORY Procedure Laterality Date MIRENA PAST SURGICAL HISTORY OF c section x 1 Family History: FAMILY HISTORY Problem Relation Age of Onset None Other other (anxiety [Other]) Mother None Father Social History: Social History Tobacco Use Smoking status: Every Day Packs/day: 0.30 Years: 5.00 Pack years: 1.50 Types: Cigarettes Smokeless tobacco: Never Tobacco comments: was on chantix in the past. Substance Use Topics Alcohol use: No Drug use: No Medications: No current outpatient medications on file. No current facility-administered medications for this visit. Allergies: Bacitracin and Neosporin (Neomycin-Polymyx) ROS: General (negative for fatigue, malaise, weight loss/gain) HEENT (negative for headache, earache, recent vision changes, sinus pain, sore throat) Respiratory (no recent shortness of breath, hemoptysis) CV (negative for chest tightness, palpitations) Musculoskeletal (see HPI) Psych (no depression, anxiety) REFERRING PHYSICIAN: Consultation requested by Dr. Cordova for an opinion regarding bilateral carpal tunnel. My final recommendations will be communicated back to the requesting physician by way of shared Medical record or letter to requesting physician via US mail. Azam Cordova [address] [facility] [address] Azam Cordova MD [address] [facility] [address] Ciaran Davis MD [facility] 08-06-2022 History of Presen t illness Narrative Patient presents with: Left Wrist - New, Pain Ciaran Davis MD Department of Orthopaedics Orthopaedics [address] [place] [address] Dept: [phone] Dept August 06, 2022 CHIEF COMPLAINT: New and Pain of the Left Wrist HPI Pt with carpal tunnel pain in left wrist for 4 years. Pt states splints help ease pain. Pt is right hand dominant. AMB ROOMING INTAKE FLOWSHEET DATA Risk Screening Do you have concerns about personal safety or safety in the home?: No Pain Pain Level: 3 Pain Location: Wrist-Left Description: Tingling Duration Amount of Time: 4 Duration Units: Years Frequency: Continuous Intervention/Comfort measure: Splinting ASSESSMENT: G56.02 Carpal tunnel syndrome, left PLAN: We reviewed the risks, benefits, alternatives and potential complications involving both operative and nonoperative care. This is been going on for quite some time and her symptoms likely out way her mild nerve test findings. We will proceed with MAC CTR. Stagger with the right by a few weeks. Gel brace for early return to work. FOLLOW UP INSTRUCTIONS: As above Ms. Leila Marin was advised as to contrast therapies and/or to take analgesics/anti-inflammatories as needed and all contraindications were reviewed. OBJECTIVE: Ms. Leila Marin is a pleasant 37 year old in no apparent distress. Gen:LMP 04/30/2011 nl development, non obese, no deformities ENT: Normocephalic, normal hearing, moist mucosa CV: Pulses:Radial= 2+ and symmetric, capillary refill < 2 secs, no peripheral edema/varicosities Skin: no rash, bruising or lesions. Good turgor. Psych: cooperative and appropriate, alert and oriented x 3, good mood and affect. Musculoskeletal: Cervical spine has supple range of motion and no tenderness to palpation, Spurling's sign negative. Shoulders and elbows have full range of motion. Negative Tinel's over the cubital tunnel, no subluxation of ulnar nerve at the elbow with flexion. Negative Tinel's over Guyon's canal. Inspection reveals no thenar atrophy. Diminished sensation to light touch in the radial 3 digits, left greater than right. Sensation intact in the ulnar 2 digits with out intrinsic atrophy/weakness. Positive Tinel's at the wrist, positive carpal tunnel compression testing on the left greater than right. No locking or catching of the digits. No tenderness to palpation or masses noted in the forearm or hand. IMAGING: Study Interpretation Electrodiagnostic examination of the left upper extremity with comparison studies of the right median nerve demonstrates: Findings in the left median nerve that are borderline for borderline/mild left median neuropathy at the wrist (carpal tunnel syndrome). Comparison studies of the right median nerve are normal. There is no significant evidence of other compression neuropathy nor cervical radiculopathy in the left upper extremity. Supporting Subjective Information Below: Past Medical History: PAST MEDICAL HISTORY Diagnosis Date Depression NEGATIVE MEDICAL HISTORY Tricuspid valve regurgitation 08/08 echo,minimal, no murmur Past Surgical History: PAST SURGICAL HISTORY Procedure Laterality Date MIRENA PAST SURGICAL HISTORY OF c section x 1 Family History: FAMILY HISTORY Problem Relation Age of Onset None Other other (anxiety [Other]) Mother None Father Social History: Social History Tobacco Use Smoking status: Every Day Packs/day: 0.30 Years: 5.00 Pack years: 1.50 Types: Cigarettes Smokeless tobacco: Never Tobacco comments: was on chantix in the past. Substance Use Topics Alcohol use: No Drug use: No Medications: No current outpatient medications on file. No current facility-administered medications for this visit. Allergies: Bacitracin and Neosporin (Neomycin-Polymyx) ROS: General (negative for fatigue, malaise, weight loss/gain) HEENT (negative for headache, earache, recent vision changes, sinus pain, sore throat) Respiratory (no recent shortness of breath, hemoptysis) CV (negative for chest tightness, palpitations) Musculoskeletal (see HPI) Psych (no depression, anxiety) REFERRING PHYSICIAN: Consultation requested by Dr. Cordova for an opinion regarding bilateral carpal tunnel. My final recommendations will be communicated back to the requesting physician by way of shared Medical record or letter to requesting physician via US mail. Azam Cordova [address] [facility] [address] Azam Cordova MD [address] [facility] [place] [address] Ciaran Davis MD documented in this encounter [facility] 07-16-2022 Miscellaneous Notes Patient informed and verbalized understanding. Sent to schedulers. Tabitha Ho Emg shows borderline carpal tunnel. Can have her see ortho to evaluate further. documented in this encounter [facility] 07-16-2022 Note HNO ID: [id number] Author: Shilo Kelly MD Service: ? Author Type: Physician Type: Progress Notes Filed: 07/16/2022 9:30 AM Note Text: UNIVERSAL PROTOCOL / SAFETY CHECKLIST Procedure to be Performed: EMG Sign In: A Moment of CARE was completed. Personnel directly involved with the procedure wore the appropriate PPE (Personal Protective Equipment). Patient/Surrogate Stated/Verified: PATIENT VERIFIED(optional for EMERGENT procedures): Patient name, Date of , Relevant allergies, and The intended procedure Time Out Communication: Intended patient and procedure match the source documents. Correct side/site marked and visible. Sign Out: SIGN OUT (optional for EMERGENT procedures): Post-procedure follow-up management communicated and Plan of Care Visit completed when applicable. Oneyda Kelly MD [facility] 07-16-2022 History of Presen t illness Narrative UNIVERSAL PROTOCOL / SAFETY CHECKLIST Procedure to be Performed: EMG Sign In: A Moment of CARE was completed. Personnel directly involved with the procedure wore the appropriate PPE (Personal Protective Equipment). Patient/Surrogate Stated/Verified: PATIENT VERIFIED(optional for EMERGENT procedures): Patient name, Date of , Relevant allergies, and The intended procedure Time Out Communication: Intended patient and procedure match the source documents. Correct side/site marked and visible. Sign Out: SIGN OUT (optional for EMERGENT procedures): Post-procedure follow-up management communicated and Plan of Care Visit completed when applicable. Oneyda Kelly MD documented in this encounter [facility] 06-28-2022 Note HNO ID: [id number] Author: Azam Cordova MD Service: ? Author Type: Physician Type: Progress Notes Filed: 06/28/2022 1:39 PM Note Text: Patient presents with: Wrist Pain HPI: Patient presents today for office visit for concerns with B/L wrist pain that started about 4+ YRS ago. Progressing. 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 Getting cramps from wrists up to elbow. Hands and fingers curl and lock up. Wears splints at night with no relief. Wakes her up at night. Locking up during the day. Have to wait for them to relax and open. Can be swollen at times. Splint prevents swelling. Gets numb, primarily in her thumb and forefinger. Starts in the ball of her hand and travels up her wrist to her elbow. Can feel electric shocks. No trauma. Neck feels ok. Worse with driving. MEDICATIONS: No current outpatient medications on file. No current facility-administered medications for this visit. ALLERGIES: ALLERGIES Allergen Reactions Bacitracin Swelling Neosporin (Neomycin* Swelling PAST MEDICAL HISTORY Diagnosis Date Depression NEGATIVE MEDICAL HISTORY Tricuspid valve regurgitation 08/08 echo,minimal, no murmur PAST SURGICAL HISTORY Procedure Laterality Date MIRENA PAST SURGICAL HISTORY OF c section x 1 FAMILY HISTORY Problem Relation Age of Onset None Other other (anxiety [Other]) Mother None Father Social History Tobacco Use Smoking status: Every Day Packs/day: 0.30 Years: 5.00 Pack years: 1.50 Types: Cigarettes Smokeless tobacco: Never Tobacco comments: was on chantix in the past. Substance Use Topics Alcohol use: No Drug use: No Reviewed current medications, allergies, past medical history, surgical history, family history and social history today. REVIEW OF SYSTEMS All other reviewed and negative other than HPI. VITALS: BP 100/68 Pulse 65 Ht 177.8 cm (5' 10) Wt 63.5 kg (140 lb) LMP 04/30/2011 SpO2 99% BMI 20.09 kg/m? Last 4 Encounter Wt Readings: Date: Wt: 03/20/2021 64 kg (141 lb) 10/05/2020 59.9 kg (132 lb) 09/30/2018 57.6 kg (127 lb) 01/15/2018 62.6 kg (138 lb) PHYSICAL EXAMINATION: General appearance: Well appearing, alert, in no acute distress, well-hydrated, well nourished. Skin: Skin color, texture, turgor normal, no suspicious rashes or lesions Extremities: No deformities, edema, skin discoloration, clubbing or cyanosis. Good capillary refill. , positive phalen's. Atrophy. Musculoskeletal: No joint swelling, deformity, or tenderness Peripheral pulses: Normal Neuro: Gait normal. Reflexes normal and symmetric. Sensation grossly intact. ASSESSMENT/PLAN: 1. Paresthesia - ICD9: 782.0, ICD10: R20.2 - stretches, ice, b complex vitamins. Discussed risks and benefits of new medication with the patient. Advised them to call if any side effects or questions. - continue splinting. Send to ortho pending the above. - EMG(NEURO/NI) - MELOXICAM 15 MG TABLET Azam Cordova MD Medical Decision Making: Problems: Moderate: New problem with uncertain prognosis Data: Unique test(s) ordered: 1 Risk: Moderate: Drug management Medical Decision Making Level: 4 - Moderate [facility] Evaluation note Diagnosis Paresthesia Disturbance of skin sensation documented in this encounter [facility] note* Diagnosis Carpal tunnel syndrome, left- Primary Carpal tunnel syndrome documented in this encounter [facility] note* Diagnosis Carpal tunnel syndrome of right wrist- Primary Carpal tunnel syndrome Carpal tunnel syndrome, left Carpal tunnel syndrome documented in this encounter [facility] note* Diagnosis Carpal tunnel syndrome, left- Primary Carpal tunnel syndrome Carpal tunnel syndrome, left Carpal tunnel syndrome [facility] Diagnosis Preoperative examination- Primary Preoperative examination, unspecified Carpal tunnel syndrome, left Carpal tunnel syndrome Palpitations Current every day smoker Tobacco use disorder Carpal tunnel syndrome, left Carpal tunnel syndrome documented in this encounter [facility] note* Diagnosis Bilateral carpal tunnel syndrome- Primary Carpal tunnel syndrome documented in this encounter [facility] noteNo assessment information availableWLakeHealth [facility] Work Phone: Evaluation note* Diagnosis Anxiety with depression- Primary Difficulty sleeping Sleep disturbance, unspecified [facility] Diagnosis Anxiety with depression documented in this encounter [facility] note* Diagnosis Anxiety with depression- Primary documented in this encounter [facility] for visit Narrative* Outpatient Procedure (Routine) - Closed Specialty Diagnoses / Procedures Referred By Contac t Referred To [facility] Diagnoses Paresthesia Procedures EMG(NEURO/NI) NERVE CONDUCTION STUDIES 9-10 STUDIES Azam Cordova MD [address] [place] [address] [facility] [place] [address] [place] [address] Referral ID Status Reason Start Date Expiration Date V isits Requested Visits Authorized [id number] Closed Auto-Generate d Referral 06/28/2022 06/28/2023 1 1 [facility] Summary Purpose Family History No Family History Records FoundNo Family History Records FoundNo Family History Records FoundNo Family History Records Found Advance Directives Advance Directive Response Recorded Date/ Time Living Will No September 10 8 9:51am 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 No September 10 018 9:51am Reason for Referral Specialty Diagnoses / Procedures Referred By Reed arboleda Referred To Contact Orthopedics Diagnoses Carpal tunnel syndrome, left Procedures CONSULT TO ORTHOPAEDICS OFFICE/OUTPATIENT [facility] 60-74 MINUTES Azam Cordova MD [address] [place] [address] Referral ID Status Reason Start Date Expiration Date Visits Requested Visits Authorized [id number] Authorized PCP Requested Referral 07/16/2022 07/16/2023 1 1 Additional Source Comments INFORMATION SOURCE (unrecogn ized section and content) DATE CREATED AUTHOR 04/04/2021 [facility] DATE CREATED AUTHOR AUTHOR'S ORGANIZ ATION 09/02/2022 [facility] DATE CREATED AUTHOR AUTHOR'S ORGANIZ ATION 09/13/2022 [facility] DATE CREATED AUTHOR AUTHOR'S ORGANIZ ATION 01/05/2023 [facility] Source Comments (unrecognize d section and content) In the event this informatio n is protected by the Federal Confidentiality of Alcohol and Drug Abuse Patient Records regulations: The Federal rules restrict any use of the information to criminally investigate or prosecute any alcohol or drug abuse patient.[facility] the event this information is protected by the Federal Confidentiality of Alcohol and Drug Abuse Patient Records regulations: The Federal rules restrict any use of the information to criminally investigate or prosecute any alcohol or drug abuse patient.[facility] the event this information is protected by the Federal Confidentiality of Alcohol and Drug Abuse Patient Records regulations: The Federal rules restrict any use of the information to criminally investigate or prosecute any alcohol or drug abuse patient.[facility] the event this information is protected by the Federal Confidentiality of Alcohol and Drug Abuse Patient Records regulations: The Federal rules restrict any use of the information to criminally investigate or prosecute any alcohol or drug abuse patient.[facility] the event this information is protected by the Federal Confidentiality of Alcohol and Drug Abuse Patient Records regulations: The Federal rules restrict any use of the information to criminally investigate or prosecute any alcohol or drug abuse patient.[facility] the event this information is protected by the Federal Confidentiality of Alcohol and Drug Abuse Patient Records regulations: The Federal rules restrict any use of the information to criminally investigate or prosecute any alcohol or drug abuse patient.[facility] the event this information is protected by the Federal Confidentiality of Alcohol and Drug Abuse Patient Records regulations: The Federal rules restrict any use of the information to criminally investigate or prosecute any alcohol or drug abuse patient.[facility] the event this information is protected by the Federal Confidentiality of Alcohol and Drug Abuse Patient Records regulations: The Federal rules restrict any use of the information to criminally investigate or prosecute any alcohol or drug abuse patient.[facility] the event this information is protected by the Federal Confidentiality of Alcohol and Drug Abuse Patient Records regulations: The Federal rules restrict any use of the information to criminally investigate or prosecute any alcohol or drug abuse patient.[facility] the event this information is protected by the Federal Confidentiality of Alcohol and Drug Abuse Patient Records regulations: The Federal rules restrict any use of the information to criminally investigate or prosecute any alcohol or drug abuse patient.[facility] the event this information is protected by the Federal Confidentiality of Alcohol and Drug Abuse Patient Records regulations: The Federal rules restrict any use of the information to criminally investigate or prosecute any alcohol or drug abuse patient.[facility] Care Teams (unrecognized sec tion and content) Reactor Operator Relationship Specialty Start Date End Date Azam Cordova MD [address] [place], [place] [id number] PCP - General Family Medicine 09/19/12 Reactor Operator Relationship Specialty Start Date End Date Azam Cordova MD [address] [place], [place] [id number] PCP - General Family Medicine 09/19/12 Reactor Operator Relationship Specialty Start Date End Date Azam Cordova MD [address] [place], [place] [id number] PCP - General Family Medicine 09/19/12 Reactor Operator Relationship Specialty Start Date End Date Azam Cordova MD [address] [place] [address] PCP - General Family Medicine 09/19/12 Reactor Operator Relationship Specialty Start Date End Date Azam Cordova MD [address] [place] [address] PCP - General Family Medicine 09/19/12 Reactor Operator Relationship Specialty Start Date End Date Azam Cordova MD [address] [place] [address] PCP - General Family Medicine 09/19/12 Reactor Operator Relationship Specialty Start Date End Date Azam Cordova MD [address] [place] [address] PCP - General Family Medicine 09/19/12 Team Status: Active Member Role Status Dates Dr. Azam Cordova MD Family Provider Active Dr. Azam Cordova MD Primary Care Provider Active Team Status: Inactive Member Role Status Dates Dr. Azam Cordova MD Primary Care Provider Active BERNY CasarezC Attending Provider Active Reactor Operator Relationship Specialty Start Date End Date Azam Cordova MD [address] [place] [address] PCP - General Family Medicine 09/19/12 Reactor Operator Relationship Specialty Start Date End Date Azam Cordova MD [address] [place] [address] PCP - General Family Medicine 09/19/12 Reactor Operator Relationship Specialty Start Date End Date Azam Cordova MD [address] [place], [place] [address] PCP - General Family Medicine 09/19/12 Reactor Operator Relationship Specialty Start Date End Date Azam Cordova MD [address] [place] [address] PCP - General Family Medicine 09/19/12 Reason for Visit (unrecogniz ed section and content) Reason Comments Results Reason Comments New Pain Specialty Diagnoses / Procedures Referred By Reed arboleda Referred To Contact Orthopedics Diagnoses Carpal tunnel syndrome, left Procedures CONSULT TO ORTHOPAEDICS OFFICE/OUTPATIENT NEW HIGH MDM 60-74 MINUTES Azam Cordova MD [address] [place] [address] Referral ID Status Reason Start Date Expiration Date V isits Requested Visits Authorized [id number] Closed PCP Requested Referral 07/16/2022 07/16/2023 1 1 Reason Comments Schedule Surgery Reason Comments Appointment DOS 08/10/2022 Reason Comments Post Op 1 week 6 days post op Right CTR Reason Comments Anxiety depression Reason Comments Refill Request Reason Onset Date Comments Refill Request 02/15/2024 Reason Comments Medication Follow-up Goals (unrecognized section and content) Goals may be documented in a n alternate section FOR RECORDS PERTAINING TO PATIENTS WHO ARE OR HAVE BEEN ENROLLED IN A CHEMICAL DEPENDENCY/SUBSTANCEABUSE PROGRAM, SOME INFORMATION MAY BE OMITTED. This clinical summary was aggregated from multiple sources. Caution should be exercised in using it in the provision of clinical care. This summary normalizes information from multiple sources, and as a consequence, information in this document may materially change the coding, format and clinical context of patient data. In addition, data may be omitted in some cases. CLINICAL DECISIONS SHOULD BE BASED ON THE PRIMARY CLINICAL RECORDS. [facility] [employer] [facility]. provides no warranty or guarantee of the accuracy or completeness of information in this document.
--- NOTE | 2025-02-13 11:06 | EDS_ITS ---
HPI History of Present Illness Chief Complaint: Upper Extremity Injury Narrative Narrative: Patient is a 31-year-old female with no known significant past medical history who presents to the emergency department with a chief complaint of right elbow pain. Patient states that on Saturday last week she was playing [employer] and then Saturday she woke up with severe pain. She notes that she had been doing RICE therapy which was not helping therefore she went to urgent care and they sent her here to the emergency department to be evaluated. Patient denies any history of drug use denies any history of IV drug use. Patient states that she can move her elbow however it is painful for her to do so. Patient denies any direct trauma or other injuries. Patient states that she works for the [employer] and does not do repetitive motions with tools such as screwdrivers etc. [facility] Medical History (Updated 02/13/25 @ 11:[address] Pa Crow, DO) Frequent headaches Fatigue History of anemia History of hemorrhoids Home Medications ?Medication ?Instructions ?Recorded ?Last Taken ?Type NK 04/20/19 Unknown History Allergy/AdvReac Type Severity Reaction Status Date / Time Penicillins (PCN) Allergy Rash Verified 02/13/25 09:48 bacitracin (From Neosporin AdvReac Other Verified 02/13/25 09:48 ([id number])) bacitracin zinc (From AdvReac Other Verified 02/13/25 09:48 Neosporin (lva-try-duldz)) neomycin sulfate (From AdvReac Other Verified 02/13/25 09:48 Neosporin ([id number])) polymyxin B (From Neosporin AdvReac Other Verified 02/13/25 09:48 (iqa-[id number])) Surgical History History of section
--- NOTE | 2025-02-13 11:06 | EX.ED.UPPERE ---
HPI History of Present Illness Chief Complaint: Upper Extremity Injury Narrative Narrative: Patient is a 31-year-old female with no known significant past medical history who presents to the emergency department with a chief complaint of right elbow pain. 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 She notes that she had been doing RICE therapy which was not helping therefore she went to urgent care and they sent her here to the emergency department to be evaluated. Patient denies any history of drug use denies any history of IV drug use. Patient states that she can move her elbow however it is painful for her to do so. Patient denies any direct trauma or other injuries. Patient states that she works for the [employer] and does not do repetitive motions with tools such as screwdrivers etc. [facility] Medical History (Updated 02/13/25 @ 11:[address] Pa Crow DO) Frequent headaches Fatigue History of anemia History of hemorrhoids Home Medications ?Medication ?Instructions ?Recorded ?Last Taken ?Type NK 04/20/19 Unknown History Allergy/AdvReac Type Severity Reaction Status Date / Time Penicillins (PCN) Allergy Rash Verified 02/13/25 09:48 bacitracin (From Neosporin AdvReac Other Verified 02/13/25 09:48 ([id number])) bacitracin zinc (From AdvReac Other Verified 02/13/25 09:48 Neosporin ([id number])) neomycin sulfate (From AdvReac Other Verified 02/13/25 09:48 Neosporin ([id number])) polymyxin B (From Neosporin AdvReac Other Verified 02/13/25 09:48 ([id number])) Surgical History History of section Social History Smoking Status: Former smoker alcohol intake: never ROS ROS ED ROS Narrative Constitutional: Denies fevers, chills Neurological: Denies numbness, weakness, tingling Musculoskeletal: Complains of right elbow pain as noted above Skin: Denies rashes or lesions EXAM Physical Exam Narrative Exam Narrative: General: Patient following commands knew that she was at [facility] year is 2024 Head: Atraumatic, normocephalic Eyes: PERRL bilaterally, EOMI bilateral, no conjunctival injection noted Neck: Soft, supple, trachea midline Cardiovascular: Regular rate and rhythm Respiratory: Clear to auscultation bilaterally Musculoskeletal: Patient has full range of motion of her elbow with full flexion extension she states that this does cause discomfort but is able to do so no short arc syndrome. Patient has pain to palpation over the lateral epicondyle. When attempting wrist extension on that side she has increased exacerbation over the right lateral condyle. No tenderness palpation of the medial condyle. Extremities: Radial pulses +2/4 in the bilateral upper extremities, +5/5 strength noted in the bilateral upper and lower extremities, patient is able to give me the okay sign thumbs up and oppose her thumb to her pinky bilaterally with any difficulty she is able to abduct adduct her fingers bilaterally without difficulty Neurological: Patient follow commands knew that she was at [facility] the year is 2024. Patient is sensation grossly tact in the median ulnar radial nerve distributions bilaterally as well as axillary nerve distribution bilaterally. Skin: Warm, dry, tact no rashes or lesions noted Const Vital Signs: 02/13/25 09:48 Temperature 98.5 F Temperature Source Oral Pulse Rate 59 L Respiratory Rate 14 Blood Pressure 106/62 Blood Pressure Mean 76 Pulse Ox 100 MDM MDM MDM Narrative Medical decision making narrative: Patient is a 39-year-old female who presented to the Emergency Department chief complaint of right elbow pain. On the differential diagnosis includes but not limited to lateral epicondylitis, fracture, dislocation although feel these are less likely as she has not had any direct trauma. Should be given IM Toradol. Once workup is obtained reviewed she will be reevaluated. Patient x-ray of her elbow reviewed by myself by radiology showed no acute fracture or dislocation there is osseous fragment adjacent to the lateral epicondyle likely secondary to calcific tendinopathy. On reevaluation patient states that the Toradol helped her pain. She is advised that she needs to obtain a tennis elbow brace apply this. She is advised to rotate Tylenol and ibuprofen [id number] for pain control. She will be given orthopedic follow-up as well as advised to follow-up with her primary care physician outpatient setting. She is encouraged return with worsening symptoms or any concerns. She is agreeable to plan all question concerns answered she was discharged home in stable condition. Radiography Diagnostic Testing: Clinical Impression(s) from Imaging Studies Elbow X-Ray 02/13/25 10:30 IMPRESSION: No acute fracture or dislocation. Osseous fragments adjacent to the lateral epicondyle, likely secondary to calcific tendinopathy. [facility] Chief Complaint: Upper Extremity Injury ED Provider: Pa Crow Dx/Rx/DC Orders Clinical Impression: Epicondylitis, lateral, right Prescriptions: No Action NK Primary Care Provider: Azam Cordova Referrals: Azam Cordova MD [Primary Care Provider] - Eric Parker MD [Med Staff - Active Staff] - Activity Restrictions/Additional Instructions: Follow with your primary care physician outpatient setting as well as the orthopedic surgeon you referred to. Rotate Tylenol and ibuprofen [id number] when you do this you can take something every 3 hours. Max dose of Tylenol in 24 hours 4000 mg max dose of ibuprofen in 24 hours 3200 mg. Obtain the tennis elbow brace that we discussed here in the emergency department. Return with any other concerns. Print Language: Slovak Disposition Disposition: Home, Self Care
== END 2025-02-13 11:36 | disposition home or self-care (01) ==
PROVIDERS: Emergency Provider Emergency Medicine; PCP Family Medicine; Visit Provider Emergency Medicine
DX: M77.11 Lateral epicondylitis, right elbow (principal); Z87.891 Personal history of nicotine dependence
CPT/HCPCS: 73080; 96372; 99282